=== PATIENT | male | born 1970 | race Caucasian/White ===

== ENCOUNTER 2022-01-03 01:07 | Emergency (ER) | payer MEDICARE, OTHER, SELFPAY ==
[2022-01-03 00:06] VITALS: BP 141/77; PULSE 67; RESP 16; TEMP 36.6; O2SAT 99; BMI 35.5
[2022-01-03 00:08] VITALS: BMI 35.5
--- NOTE | 2022-01-03 00:10 | CT_ITS ---
PROCEDURE INFORMATION: Exam: CT Abdomen And Pelvis With Contrast Exam date and time: 01/03/2022 12:35 AM Age: 51 years old Clinical indication: Abdominal pain; Generalized; Prior surgery; Surgery date: 6+ months; Surgery type: Gb; Additional info: Abd pain TECHNIQUE: Imaging protocol: Computed tomography of the abdomen and pelvis with contrast. Radiation optimization: All CT scans at this facility use at least one of these dose optimization techniques: automated exposure control; mA and/or kV adjustment per patient size (includes targeted exams where dose is matched to clinical indication); or iterative reconstruction. Contrast material: ISOVUE; Contrast volume: 75 ml; Contrast route: IV; COMPARISON: No relevant prior studies available. FINDINGS: Lungs: Mild bibasilar atelectasis. Patchy nodular opacities within the visualized lingula and left lower lobe, possibly areas of pneumonitis. Liver: Hepatic steatosis. Gallbladder and bile ducts: Gallbladder surgically absent. Pancreas: Normal. Spleen: Normal. Adrenal glands: Normal. No mass. Kidneys and ureters: Simple right renal cyst, for which no further evaluation is necessary. Stomach and bowel: Normal. Appendix: Appendix normal. Intraperitoneal space: Unremarkable. No free air. No significant fluid collection. Vasculature: Unremarkable. No abdominal aortic aneurysm. Lymph nodes: Unremarkable. No enlarged lymph nodes. Urinary bladder: Urinary bladder decompressed by Edwards catheter. Reproductive: Unremarkable as visualized. Bones/joints: Mild degenerative changes of the hips and sacroiliac joints. Multilevel thoracolumbar spine degenerative disc space narrowing and osteophyte formation. Soft tissues: Normal. IMPRESSION: 1. No acute abdominal or pelvic abnormality. 2. Patchy nodular opacities within the visualized lingula and left lower lobe, possibly areas of pneumonitis. COMMENTS: Consistent with the [employer]'s Incidental Findings Committee white paper (J Am Tyler Radiol 2018): Any incidental renal lesion less than 1 cm or classified as too small to characterize, or any incidental cystic renal lesion characterized as simple-appearing, is likely benign. No follow-up imaging is recommended for these lesions per consensus recommendations based on imaging criteria.
[2022-01-03 00:24] LABS: Microscopic, Urine URINE MICROSCOPIC (MICROSCOPIC)
[2022-01-03 00:29] LABS: Appearance,Urine CLEAR (Clear); Blood, Urine Negative (Negative); Color,Urine YELLOW (Yellow); Glucose,Urine (UA) Negative (Negative); Ketones,Urine Negative (Negative); Leukocyte Esterase,Urine Negative (Negative); Nitrate,Urine Negative (Negative); Protein,Urine TRACE (Negative); Specific Gravity, Urine >= 1.030 (1.005-1.030)
[2022-01-03 00:29] LABS: Basophils # 0.2 K/mm3 (0-0.2); Basophils % 1.5 % (0.1-2.0); Chloride 100 mmol/L (98-107); Eosinophils # 0.2 K/mm3 (0.0-0.4); Eosinophils % 1.2 % (0.1-12.0); Hemoglobin 14.7 g/dL (14.1-18.0); Lymphocytes # 4.6 K/mm3 (0.7-4.5); Lymphocytes % 33.1 % (10-50); Mean Corpuscular HGB Conc 32.6 g/dL (31.8-35.4); Mean Platelet Volume 9.6 fl (7.4-10.4); Monocytes # 0.9 K/mm3 (0.1-1.0); Monocytes % 6.7 % (1.7-9.3); Neutrophils # 8.1 K/mm3 (1.8-7.8); Neutrophils % 57.5 % (37.0-80.0); Platelet Count 203 K/mm3 (142-424); Potassium 3.9 mmoL/L (3.5-5.1); Red Blood Count 4.74 M/mm3 (4.60-6.20); Red Cell Distribution Width 14.4 % (11.5-17.5); Sodium 135 mmol/L (136-145)
[2022-01-03 00:32] LABS: Amylase 93 U/L (30-110); Blood Urea Nitrogen 8 mg/dl (9-20); Creatinine Clearance Estimated 140 mL/min (50-200); Estimated Glomerular Filt Rate 90 ml/min (>60); GFR (African American) 109 ML/MIN (>60)
[2022-01-03 00:33] LABS: Anion Gap 11.9 mEq/L (5-15); Carbon Dioxide 27 mmol/L (22.0-30.0); Glucose 116 mg/dl (74-100)
[2022-01-03 00:34] LABS: Bilirubin,Urine Negative (Negative); Squamous Epithelial Cell,Urine Occasional #/hpf (0-5); WBC,Urine Occasional #/hpf (0-3)
[2022-01-03 00:38] LABS: C-Reactive Protein 62.7 mg/L (0-4)
--- NOTE | 2022-01-03 00:38 | HMH.EDNVD ---
ED Disposition Clinical Impression: Abdominal pain Qualifiers: Abdominal location: generalized Qualified Code(s): R10.84 - Generalized abdominal pain Disposition: Home, Self-Care Condition on Discharge: Good Instructions: DI for Acute Abdominal Pain Additional Instructions: see pcp for follow up Referrals: Rafy Waller [Primary Care Provider] - - Critical Care Critical Care Time: No Attestation: On , the high probability of a clinically significant, sudden or life threatening deterioration of the following system(s) required my full and direct attention, intervention and personal management. The time I documented below is in addition to time spent performing reported procedures but includes the following listed in this critical care notation. Medical Decision Making - Medical Records Medical records reviewed: Yes: I reviewed the patient's medical records. - Malachi Inquiry Pt receiving controlled substance: No Vital Signs: 01/03/22 00:06 01/03/22 01:00 01/03/22 01:31 Temperature 97.9 F Temperature Source Oral Pulse Rate 71 76 Pulse Rate [Right] 67 Respiratory Rate 16 Blood Pressure 149/81 H 161/83 H Blood Pressure [Right Arm] 141/77 H Blood Pressure Mean 94 109 Blood Pressure Mean [Right Arm] 98 02 Sat by Pulse Oximetry 99 98 100 - Lab Data Lab results reviewed: Yes: I reviewed the patient's lab results. Lab Results 01/03/22 00:15: Sodium 135 L, Potassium 3.9, Chloride 100, Carbon Dioxide 27, Anion Gap 11.9, BUN 8 L, Creatinine 0.90, Estimated Creat Clear 140, Estimated GFR 90, Est GFR ( Amer) 109, Glucose 116 H, Calcium 9.0, C-Reactive Protein 62.7 H, Amylase 93 01/03/22 00:15: WBC 14.0 H, RBC 4.74, Hgb 14.7, Hct 45.0, MCV 95.0 H, MCH 31.0, MCHC 32.6, RDW 14.4, Plt Count 203, MPV 9.6, Neut % (Auto) 57.5, Lymph % (Auto) 33.1, Stark % (Auto) 6.7, Eos % (Auto) 1.2, Baso % (Auto) 1.5, Neut # (Auto) 8.1 H, Lymph # (Auto) 4.6 H, Stark # (Auto) 0.9, Eos # (Auto) 0.2, Baso # (Auto) 0.2, ESR 10 01/03/22 00:15: Magnesium 1.6, Lipase 261, Procalcitonin 0.070 01/03/22 00:15: Lactate 2.0 01/03/22 00:15: Total Bilirubin 0.5, Direct Bilirubin 0.2, Conjugated Bilirubin 0.0, Indirect Bilirubin 0.3, Unconjugated Bilirubin 0.3, AST 52, ALT 59, Alkaline Phosphatase 117, Total Protein 7.7, Albumin 4.4 01/03/22 00:20: Urine Color Yellow, Urine Appearance Clear, Urine pH 6.0, Ur Specific [place] >= 1.030, Urine Protein Trace, Urine Glucose (UA) Negative, Urine Ketones Negative, Urine Blood Negative, Urine Nitrate Negative, Urine Bilirubin Negative, Urine Urobilinogen 1.0, Ur Leukocyte Esterase Negative, Urine WBC Occasional, Ur Squamous Epith Cells Occasional 01/03/22 01:52: SARS-CoV-2 (PCR) Not detected, Influenza A Untype (PCR) Not detected, Influenza Type B (PCR) Not detected Result diagrams: 01/03/22 00:15 01/03/22 00:15 Orders (Tests/Meds): ED MEDICATIONS Generic Name Dose Route Start Last Admin Trade Name Freq PRN Reason Stop Dose Admin Sodium Chloride 1,000 mls @ 999 mls/hr 01/03/22 00:15 01/03/22 00:42 Sod Chlor 0.9% 1000ml Bag IV 01/03/22 01:15 999 mls/hr .Q1H1M JORGITO Administration Sodium Chloride 8 ml 01/03/22 00:16 Sodium Chloride 0.9% 10ml Vial IV 02/02/22 00:15 NEEDED PRN dilute pepcid Discontinued Medications Generic Name Dose Route Start Last Admin Trade Name Freq PRN Reason Stop Dose Admin Famotidine 20 mg 01/03/22 00:16 01/03/22 00:43 Famotidine 20mg/2ml Vial IV 01/03/22 00:17 20 mg ONCE ONE Administration Iopamidol 75 ml 01/03/22 00:49 01/03/22 00:50 Iopamidol-370 (76%);100ml Bottle IV 01/03/22 00:50 75 ml ONCE ONE Administration Ketorolac Tromethamine 30 mg 01/03/22 00:16 01/03/22 00:43 Ketorolac 30mg/Ml Vial IV 01/03/22 00:17 30 mg ONCE ONE Administration Metoclopramide HCl 10 mg 01/03/22 00:15 01/03/22 00:42 Metoclopramide Hcl 10mg/2ml Vial IVP 01/03/22 00:16 10 mg ONCE ONE Administration
[2022-01-03 00:43] LABS: Lipase 261 U/L (23-300); Magnesium 1.6 mg/dl (1.6-2.3)
[2022-01-03 01:00] VITALS: BP 149/81; PULSE 71; O2SAT 98
[2022-01-03 01:25] LABS: Erythrocyte Sedimentation Rate 10 mm/hr (0-15)
[2022-01-03 01:31] VITALS: BP 161/83; PULSE 76; O2SAT 100
--- NOTE | 2022-01-03 01:49 | XR_ITS ---
PROCEDURE INFORMATION: Exam: XR Chest Exam date and time: 01/03/2022 1:53 AM Age: 51 years old Clinical indication: Other: Elevated wbc TECHNIQUE: Imaging protocol: Radiologic exam of the chest. Views: 1 view. COMPARISON: CT ABDOMEN PELVIS W CON 01/03/2022 12:35 AM FINDINGS: Lungs: Minimal left basilar opacity, likely atelectasis and/or minimal pneumonitis. No focal consolidation. Pleural spaces: Unremarkable. No pleural effusion. No pneumothorax. Heart/Mediastinum: Normal. Bones/joints: Changes of prior right proximal humeral fracture repair. IMPRESSION: Minimal left basilar opacity, likely atelectasis and/or minimal pneumonitis. No focal consolidation.
[2022-01-03 01:59] LABS: Coronavirus 19, PCR Not Detected (NotDetected); Influenza A, PCR Not Detected (NotDetected); Influenza B, PCR Not Detected (NotDetected)
[2022-01-03 02:41] LABS: Alanine Aminotransferase 59 U/L (12-78); Albumin Level 4.4 g/dl (3.5-5.0); Alkaline Phosphatase 117 U/L (38-126); Aspartate Amino Transferase 52 U/L (17-59); Bilirubin,Direct 0.2 mg/dl (0.0-0.4); Bilirubin,Indirect 0.3 mg/dL (0.0-0.9); Bilirubin,Total 0.5 mg/dl (0.2-1.3); Bilirubin,Unconjugated 0.3 mg/dL (0.0-1.1); Total Protein,Serum 7.7 g/dl (6.3-8.2)
[2022-01-03 03:19] VITALS: BP 145/78; PULSE 70; RESP 16; TEMP 36.6; O2SAT 100
== END 2022-01-03 04:10 | disposition home or self-care (01) ==
PROVIDERS: Emergency Provider Emergency Medicine; PCP Pediatrics
DX: R10.84 Generalized abdominal pain (principal)
CPT/HCPCS: 71045; 74177; 80048; 80076; 81001; 82150; 83605; 83690; 83735; 84145; 85025; 85651; 86140; 87040; 96365; 96375; 99284; C9803; J2405; Q9967; U0003; U0005

== ENCOUNTER 2022-11-16 02:21 | Emergency (ER) | payer MEDICARE, OTHER, SELFPAY ==
[2022-11-16 02:17] VITALS: BP 159/91; PULSE 102; RESP 16; TEMP 36.7; O2SAT 98
--- NOTE | 2022-11-16 02:27 | ECG_ITS ---
APPROVED REPORT Exam: Resting ECG HR:88 bpm ECG Measurements Heart Rate 88 AXES MD 166 P 67 QRSd 88 QRS 44 QT 403 T 49 QTc 449 Conclusion SINUS RHYTHM NORMAL ECG UNCONFIRMED REPORT Electronically signed by : Lenny Hogan MD 11/16/2022 21:15:52
--- NOTE | 2022-11-16 02:27 | CT_ITS ---
PROCEDURE INFORMATION: Exam: CT Abdomen And Pelvis With Contrast Exam date and time: 11/16/2022 3:28 AM Age: 52 years old Clinical indication: Abdominal pain; Additional info: Mid epigastric pain, nausea/vomiting TECHNIQUE: Imaging protocol: Computed tomography of the abdomen and pelvis with contrast. Radiation optimization: All CT scans at this facility use at least one of these dose optimization techniques: automated exposure control; mA and/or kV adjustment per patient size (includes targeted exams where dose is matched to clinical indication); or iterative reconstruction. Contrast material: ISOVUE; Contrast volume: 75 ml; Contrast route: IV; REPORTING DATA: Count of CT and Cardiac NM exams in prior 12 months: This patient has received [address] and 0 known cardiac nuclear medicine studies in the 12 months prior to the current study. COMPARISON: CT ABDOMEN PELVIS W CON 01/03/2022 12:35 AM FINDINGS: Liver: The liver is low in density. Gallbladder and bile ducts: Prior cholecystectomy. Pancreas: Normal. No ductal dilation. Spleen: Normal. No splenomegaly. Adrenal glands: Normal. No mass. Kidneys and ureters: Normal. No hydronephrosis. Stomach and bowel: Unremarkable. No obstruction. No mucosal thickening. Appendix: No evidence of appendicitis. Intraperitoneal space: Unremarkable. No free air. No significant fluid collection. Vasculature: Unremarkable. No abdominal aortic aneurysm. Lymph nodes: Unremarkable. No enlarged lymph nodes. Urinary bladder: Unremarkable as visualized. Reproductive: Unremarkable as visualized. Bones/joints: Unremarkable. No acute fracture. Soft tissues: Unremarkable. IMPRESSION: 1. No acute process or mass noted. 2. Diffuse hepatic steatosis. 3. Prior cholecystectomy.
--- NOTE | 2022-11-16 02:27 | XR_ITS ---
PROCEDURE INFORMATION: Exam: XR Chest Exam date and time: 11/16/2022 3:14 AM Age: 52 years old Clinical indication: Other: Midepigastric pain TECHNIQUE: Imaging protocol: Radiologic exam of the chest. Views: 2 views. COMPARISON: CR XR CHEST PORTABLE 01/03/2022 1:53 AM FINDINGS: Lungs: Unremarkable. No consolidation. Pleural spaces: Unremarkable. No pleural effusion. No pneumothorax. Heart/Mediastinum: Unremarkable. No cardiomegaly. Bones/joints: Unremarkable. IMPRESSION: No acute findings.
--- NOTE | 2022-11-16 02:42 | HMH.EDABDPAI ---
Discharge Plan Disposition Patient Disposition: Home, Self-Care Condition: Good Prescriptions Prescriptions: No Action fluoxetine 40 MG capsule 40 mg PO DAILY atorvastatin 10 MG tablet 10 mg PO HS tamsulosin 0.4 MG capsule 0.4 mg PO DAILY pantoprazole 40 MG tablet,delayed release (DR/EC) 40 mg PO DAILY trazodone 150 MG tablet 150 mg PO DAILY metoprolol tartrate 50 MG tablet 50 mg PO DAILY mirtazapine 45 MG tablet 45 mg PO DAILY finasteride 5 MG tablet 5 mg PO DAILY buspirone 15 MG tablet 15 mg PO BID Referrals Follow up/Referrals: Provider,Referral, MD [Primary Care Provider] - See instructions Clinical Impressions Clinical Impression: Abdominal pain, Alcohol use disorder, Depression, Self-harm Instructions Patient Instructions: Acute Abdominal Pain, DI for Suicidal Ideation-Adult Print Language Print Language: Surinamese Discharge ED Provider: Arden Arambula Abdominal Pain HPI <Daljit Tellez (ED)MD - Last Filed: 11/16/22 08:03> General Chief Complaint: Abdominal Pain Stated Complaint: abdominal pain Time Seen by Provider: 11/16/22 02:42 Mode of Arrival: EMS Source of Information: Patient, EMS and Medical Record Limitations: No Limitations Description of Symptoms (Recalled from ER Triage Doc. by RN): 52 yo male presents with cc of abd pain. According to patient, he ingested 5 beers earlier this date, but that his belly was hurting prior to it, and it caused some gastric distress afterwards. vomited once while at home. Patient is alert, oriented, speech impediment present that makes it difficult to understand his words. chews tobacco daily. denies bloody vomit. denies bloody stool. History of Present Illness HPI narrative: pt with reported etoh use and upper abd pain - MD complaint: abdominal pain Onset (ago): hour(s) Consistency: intermittent Location: epigastric Severity: moderate Associated symptoms: denies other symptoms Related Data Home Medications Medication Instructions Recorded Confirmed atorvastatin 10 mg tablet 10 mg PO HS hld 01/03/22 01/03/22 buspirone 15 mg tablet 15 mg PO BID Depression 01/03/22 01/03/22 finasteride 5 mg tablet 5 mg PO DAILY urinary retention 01/03/22 01/03/22 fluoxetine 40 mg capsule 40 mg PO DAILY Depression 01/03/22 01/03/22 metoprolol tartrate 50 mg tablet 50 mg PO DAILY htn 01/03/22 01/03/22 mirtazapine 45 mg tablet 45 mg PO DAILY Depression 01/03/22 01/03/22 pantoprazole 40 mg tablet,delayed 40 mg PO DAILY GERD 01/03/22 01/03/22 release tamsulosin 0.4 mg capsule 0.4 mg PO DAILY urinary retention 01/03/22 01/03/22 trazodone 150 mg tablet 150 mg PO DAILY Depression 01/03/22 01/03/22 Allergies Allergy/AdvReac Type Severity Reaction Status Date / Time No Known Allergies Allergy Verified 01/03/22 00:08 PFSH <Daljit OTOOLE)MD - Last Filed: 11/16/22 08:03> PFS Disclaimer: The information contained in this section may have been updated after the patient was seen, as this information can be updated by other users. Social History (Updated 11/16/22 @ 08:03 by Daljit OTOOLE)MD) Smoking Status: Never smoker alcohol intake: current current occupational status: unemployed Travel in the last 8 weeks: None <Daljit OTOOLE)MD - Last Filed: 11/16/22 08:03> ROS Obtained: Yes All systems reviewed & no additional complaints except as documented Physical Exam <Daljit OTOOLE)MD - Last Filed: 11/16/22 08:03> General General appearance: alert Head Head exam: normocephalic Eye Eye exam: Present PERRL and EOMI; Absent scleral icterus ENT ENT exam: Present mucous membranes moist and other (has chewing tob in mouth ) Neck Neck exam: Present trachea midline Respiratory Respiratory exam: Absent respiratory distress Cardiovascular Cardiovascular exam: Present regular rate Abdominal Exam Abdominal exam: Present soft and tenderness; Absent guarding Abdominal
[2022-11-16 02:43] LABS: Basophils % 0.4 % (0.1-2.0); Eosinophils # 0.1 K/mm3 (0.0-0.4); Eosinophils % 1.4 % (0.1-12.0); Hematocrit 43.9 % (42.0-52.0); Hemoglobin 14.9 g/dL (14.1-18.0); Lymphocytes # 2.8 K/mm3 (0.7-4.5); Lymphocytes % 28.5 % (10-50); Mean Corpuscular HGB Conc 33.8 g/dL (31.8-35.4); Mean Corpuscular Hemoglobin 31.9 pg (27.0-31.2); Mean Corpuscular Volume 94.4 fl (80-94); Mean Platelet Volume 9.3 fl (7.4-10.4); Monocytes # 0.6 K/mm3 (0.1-1.0); Monocytes % 6.2 % (1.7-9.3); Neutrophils # 6.2 K/mm3 (1.8-7.8); Neutrophils % 63.6 % (37.0-80.0); Platelet Count 163 K/mm3 (142-424); Red Blood Count 4.65 M/mm3 (4.60-6.20); Red Cell Distribution Width 13.9 % (11.5-17.5); White Blood Count 9.7 K/mm3 (4.8-10.8)
[2022-11-16 02:45] LABS: Chloride 97 mmol/L (98-107); Potassium 3.7 mmoL/L (3.5-5.1); Sodium 140 mmol/L (136-145)
[2022-11-16 02:48] LABS: Alanine Aminotransferase 137 U/L (12-78); Albumin Level 4.8 g/dl (3.5-5.0); Albumin/Globulin Ratio 1.4 (1.1-1.8); Alkaline Phosphatase 136 U/L (38-126); Amylase 89 U/L (30-110); Anion Gap 20.7 mEq/L (5-15); Aspartate Amino Transferase 106 U/L (17-59); Bilirubin,Total 0.3 mg/dl (0.2-1.3); Blood Urea Nitrogen 7 mg/dl (9-20); Carbon Dioxide 26 mmol/L (22.0-30.0); Creatinine Clearance Estimated 124 mL/min (50-200); Estimated Glomerular Filt Rate 102 ml/min (>60); GFR (African American) 124 ML/MIN (>60); Globulin 3.5 g/dL (1.3-3.2); Glucose 195 mg/dl (74-100); Lipase 368 U/L (23-300); Total Protein,Serum 8.3 g/dl (6.3-8.2)
[2022-11-16 02:50] LABS: Ethyl Alcohol 61 mg/dl (0-10)
[2022-11-16 03:00] VITALS: BP 131/69; PULSE 97; O2SAT 97
[2022-11-16 03:01] LABS: Troponin I < 0.01 ng/ml (0.00-0.034)
--- NOTE | 2022-11-16 03:22 | PC.NURSE ---
pt belongings removed, bagged. placed outside of room. patient is currently claiming he wants to by hanging. notified. house notified.
[2022-11-16 03:47] LABS: Acetaminophen < 10 ug/ml (10-30); Salicylate < 1.0 mg/dL (2.0-20.0)
--- NOTE | 2022-11-16 03:52 | PC.NURSE ---
pt remains 1-on1 obs. srna placed at bedside per data warehouse specialist
[2022-11-16 06:57] LABS: Troponin I < 0.01 ng/ml (0.00-0.034)
--- NOTE | 2022-11-16 07:05 | PC.NURSE ---
contacted judge solis r/t paper work needed for [employer] [facility] process. Reports he had sent it. We have not received email, gave him additional email to send paperwork to, reports he will send it.
--- NOTE | 2022-11-16 07:10 | PC.NURSE ---
per bending machine set up operator report pt reported to them that pt wanted to hang himself. pt currently 1:1 observation with staff member at [facility]
--- NOTE | 2022-11-16 08:06 | PC.NURSE ---
contacted judge solis r/t not receiving paper work
--- NOTE | 2022-11-16 09:25 | PC.NURSE ---
waiting combination building inspector back from judge solis with fax number for [facility]
--- NOTE | 2022-11-16 09:31 | PC.NURSE ---
notarized paperwork faxed to judge solis at [facility] at this time
--- NOTE | 2022-11-16 09:45 | PC.NURSE ---
paperwork received back from judge solis, faxing it to [facility] now.
[2022-11-16 09:56] VITALS: BP 178/68; PULSE 94; O2SAT 99
--- NOTE | 2022-11-16 09:56 | PC.NURSE ---
Addendum entered by Janice Vu RN 11/16/22 09:58: waiting integration software engineer back Original Note: contacted [facility] helpline spoke with sneha reports that she has received the paperwork that I faxed over states they are giving it to staff for evaluation.
--- NOTE | 2022-11-16 10:25 | PC.NURSE ---
spoke with brenden at [facility] states she is finishing another consult and then would contact us back to start on this pts consult. Requested to know if someone was present (family) to give collateral. Gave her Sharla at [facility] phone number to speak with. Reports she will probably call Sharla first and then call us back to set up a zoom.
--- NOTE | 2022-11-16 11:39 | PC.NURSE ---
spoke with pt ILEANA Hoover, was calling to check on pt. Call back number [phone]
--- NOTE | 2022-11-16 11:44 | PC.NURSE ---
contacting [facility] to check on status of evaluation
--- NOTE | 2022-11-16 11:46 | PC.NURSE ---
spoke with Dayana at [facility] states she is finishing up previous evaluation and then will be getting started on this pts evaluation. No time line available
--- NOTE | 2022-11-16 12:39 | PC.NURSE ---
lunch tray ordered for pt.
--- NOTE | 2022-11-16 12:50 | PC.NURSE ---
pt on zoom call at this time with brenden from [employer].
--- NOTE | 2022-11-16 12:51 | PC.NURSE ---
pt denying SI or HI at this time, reports he has tried to harm himself 2 previous times but denies wanting to self harm at this time. Pt at a moderate suicide risk level per protocol. Dr. Arambula at and spoke with pt at this time also.
--- NOTE | 2022-11-16 13:16 | PC.NURSE ---
pt finished zoom assessment, made safety contract with brenden from [facility] [employer]. Pt a moderate suicide risk per protocol, pt moved to room 5 (safe room) in view of nurses station. Pt remains in paper gown. All cords removed from room. Pt sitting on side of bed watching tv finishing his lunch. pt alert, oriented x3. door remains open to pts room.
--- NOTE | 2022-11-16 14:28 | PC.NURSE ---
Received fax of safety plan from [email or web address] (Yadira Hansen), states pt is ok to be d/c home from her standpoint.
--- NOTE | 2022-11-16 14:38 | PC.NURSE ---
spoke with Sharla at [facility]. States she has also spoken with Yadira muro with [facility], she is aware of details of safety plan. notified her pt is ready for d/c. States she will be sending staff to get pt, should be here with an hr.
[2022-11-16 15:17] VITALS: BP 132/59; PULSE 80; RESP 17; TEMP 36.7; O2SAT 97
== END 2022-11-16 15:20 | disposition home or self-care (01) ==
PROVIDERS: Emergency Medicine; Emergency Provider Emergency Medicine
DX: R10.13 Epigastric pain (principal); R45.851 Suicidal ideations; F10.90 Alcohol use, unspecified, uncomplicated; F17.220 Nicotine dependence, chewing tobacco, uncomplicated
CPT/HCPCS: 71046; 74177; 80053; 80329; 82150; 83690; 84484; 85025; 93005; 96361; 96374; 96375; 99285; J2405; Q9967

== ENCOUNTER 2023-03-17 02:37 | Emergency (ER) | payer MEDICARE, OTHER, SELFPAY ==
[2023-03-17 02:37] VITALS: BP 147/70; PULSE 79; RESP 20; TEMP 36.8; O2SAT 99; BMI 29.0
--- NOTE | 2023-03-17 02:41 | XR_ITS ---
PROCEDURE INFORMATION: Exam: XR Right Tibia and Fibula Exam date and time: 03/17/2023 2:45 AM Age: 52 years old Clinical indication: Injury or trauma; Fall; Blunt trauma; Lower leg; Right; Additional info: Fall, right tib/fib pain medially TECHNIQUE: Imaging protocol: Radiologic exam of the right tibia and fibula. Views: 2 views. COMPARISON: No relevant prior studies available. FINDINGS: Bones/joints: Normal. Soft tissues: Normal. IMPRESSION: No acute findings.
--- NOTE | 2023-03-17 02:41 | XR_ITS ---
PROCEDURE INFORMATION: Exam: XR Right Shoulder Exam date and time: 03/17/2023 2:42 AM Age: 52 years old Clinical indication: Injury or trauma; Fall; Blunt trauma (contusions or hematomas); Prior surgery; Surgery date: 6+ months; Surgery type: Right shoulder; Additional info: Fall, anterior R shoulder pain TECHNIQUE: Imaging protocol: Radiologic exam of the right shoulder. Views: 2 or more views. COMPARISON: CR XR CHEST 2V 11/16/2022 3:14 AM FINDINGS: Bones/joints: Prior ORIF humeral head or neck fracture with a plate and multiple screws. Good anatomic alignment. No acute process noted. Soft tissues: Normal. IMPRESSION: Prior ORIF humeral head or neck fracture with a plate and multiple screws. Good anatomic alignment. No acute process noted.
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
--- NOTE | 2023-03-17 05:09 | PC.NURSE ---
Pt does not have a ride home, will contact [facility] after 7am
--- NOTE | 2023-03-17 06:25 | PC.NURSE ---
pt resting no needs at this time
--- NOTE | 2023-03-17 07:02 | PC.NURSE ---
received report from previous shift. Pt resting in room, no needs at this time.
--- NOTE | 2023-03-17 07:20 | PC.NURSE ---
Called Case Management to see about arrangements for pt to get home. Nery is contacting [facility] bus. Pt updated on this and given a blanket for comfort. I offered to get a breakfast tray for pt, however he refused.
--- NOTE | 2023-03-17 07:27 | PC.NURSE ---
Nery from [employer] states [facility] will not open until 0800 today, she will call for milk pickup driver arrangements at that time.
[2023-03-17 07:35] VITALS: BP 140/70; PULSE 70; RESP 18; TEMP 36.7; O2SAT 98
--- NOTE | 2023-03-17 08:47 | PC.NURSE ---
[facility] will be here for pt at noon per Sharon in [facility]
--- NOTE | 2023-03-17 08:58 | PC.NURSE ---
Pt advised that his contact, Sharath, is at work, but it was okay to call his brother. Upon attempting to call pts brother received no answer.
== END 2023-03-17 10:05 | disposition home or self-care (01) ==
PROVIDERS: Emergency Provider Emergency Medicine
DX: M25.512 Pain in left shoulder (principal); M79.604 Pain in right leg; I10 Essential (primary) hypertension; E78.5 Hyperlipidemia, unspecified; F32.A Depression, unspecified; F41.9 Anxiety disorder, unspecified; W19.XXXA Unspecified fall, initial encounter
CPT/HCPCS: 73030; 73590; 96372; 99284

== ENCOUNTER 2025-01-26 14:46 | Emergency (ER) | payer MEDICARE, OTHER, SELFPAY ==
--- OUTSIDE RECORDS SUMMARY | 2025-01-06 09:00 | XMS_ITS ---
Author Organization [facility] Address [facility] [address] Care Team Providers Care Mine Promotor Name Role Phone NatalyRebeca petty Unavailable [phone] Allergies Allergen (clinical drug ingredient) Drug/Non Drug Allergy documented on EMR Reaction Allergy Type Onset Date Status morphine Morphine Unknown Drug Allergy Active ciprofloxacin Ciprofloxacin Unknown Drug Allergy Active REASON FOR VISIT Arm is better Medications Medication SIG (Take, Route, Frequency, Duration) Notes Start Date End Date Status Mirtazapine 15 MG 1 tablet at bedtime Orally Once a day Active busPIRone HCl 15 MG 1 tablet Orally Twice a day Active Divalproex Sodium 250 MG 1 tablet Orally Twice a day for 30 days Active traZODone HCl 150 MG 1 tablet at bedtime Orally Once a day Active FLUoxetine HCl 40 MG 1 capsule Orally Once a day Active Encounters Encounter Location Date Provider Diagnosis [facility] [address] [place] [address] 01/06/2025 Rebeca Ingram Major depressive disorder, recurrent, moderate F33.1 ; Generalized anxiety disorder F41.1 ; Intellectual disability F79 ; Impulse disorder, unspecified F63.9 and Alcohol use disorder F10.90 Assessments Encounter Date Diagnosis (ICD Code) Assessment Notes Treatment Notes Treatment Clinical Notes Section Notes 01/06/2025 Major depressive disorder, recurrent, moderate (ICD-10 - F33.1) Remeron decreased to 15mg QHS 07/22/2024 to aide with sleep. 01/06/2025 Generalized anxiety disorder (ICD-10 - F41.1) 01/06/2025 Intellectual disability (ICD-10 - F79) No pharmocological intervention needed at this time. 01/06/2025 Impulse disorder, unspecified (ICD-10 - F63.9) Depakote prescribed 06/10/2024 to treat increased impulsivity, aggression, and agitation in recent weeks. 01/06/2025 Alcohol use disorder (ICD-10 - F10.90) Recommend continued abstinence. 01/06/2025 Other 1) No changes to psychotropic medication regimen. Continue current regimen as patient's symptoms are improved at the lowest effective dose and patient has achieved maximal functioning and able to be cared for appropriately. 2) Continue to provide psychiatric support and medication management. Please call with signs of distress or mood changes that arise. Total time spent assessing patient, reviewing chart, and coordinating care: 27 minutes Plan Of Treatment Medication Medication Name Sig Start Date Stop Date Notes Mirtazapine 15 MG 1 tablet at bedtime Orally Once a day busPIRone HCl 15 MG 1 tablet Orally Twice a day Divalproex Sodium 250 MG 1 tablet Orally Twice a day for 30 days traZODone HCl 150 MG 1 tablet at bedtime Orally Once a day FLUoxetine HCl 40 MG 1 capsule Orally Once a day Treatment Notes Assessment Notes Major depressive disorder, r ecurrent, moderate Remeron decreased to 15mg QHS 07/22/2024 to aide with sleep. Intellectual disability No pharmocologic al intervention needed at this time. Impulse disorder, unspecified Depakote p rescribed 06/10/2024 to treat increased impulsivity, aggression, and agitation in recent weeks. Alcohol use disorder Recommend continued abstinence. Other 1) No changes to psychotropic medication regimen. Continue current regimen as patient's symptoms are improved at the lowest effective dose and patient has achieved maximal functioning and able to be cared for appropriately. 2) Continue to provide psychiatric support and medication management. Please call with signs of distress or mood changes that arise. Total time spent assessing patient, reviewing chart, and coordinating care: 27 minutes Next Appt Details Follow Up: 2-4 weeks and as needed, Reason: Progress Notes * Sam GODFREYDOB:1970 (54 yo M)Acc No.[id number]:01/06/2025 Progress Notes Patient: Sam YING Provider: Michelle Ingram APRN :1970 A ge:54 Y S ex:Male Date:01/06/2025 Address:[address] [place] [id number] Subjective: * Chief Complaints: * Arm is better * HPI: P sychiatric Status: Sam Godfrey is a 54-year-old single, male resident at [facility] in [place], [place]. Patient is being seen for follow-up visit today to monitor mood and psychosis symptoms and to provide psychotropic medication management. Patient is being treated for intellectual disability, anxiety disorder, major depressive disorder, and TBI induced mood disorder. Patient has allergies to ciprofloxacin and morphine. Staff reported patient's recent x-ray indicated no fracture to his right arm after falling in the backyard. Patient is no longer required to wear arm brace. Patient was seen in milieu for visit today. Patient stated, Arm is better. Patient was noted to not be wearing arm brace or using walker today. Sondra gonzalez was noted to be sitting calmly in the milieu and engaging with peers with no signs of pain or SOB. Patient exhibits very poor judgment and insight. Patient exhibited poor recent and remote memory. Patient appeared calm and was cooperative throughout visit. Patient presented with blunted affect. Patient appropriately dressed and groomed. Patient exhibited fair eye contact. Patient responded to questions asked with dysarthria and his responses were often difficult to understand, however, this is his baseline. Patient did not appear to be experiencing psychosis symptoms and was in no distress. Patient denied negative side effects of psychotropic medications. Clinician provided evaluation, completed chart review, and consulted with nursing staff. Risks, benefits, and side effects of all psychotropic medications were monitored and reconsidered. * ROS: R OS completed and negative to chief complaint unless otherwise noted in HPI. * Medical History: * Surgical History: A vailable for review in patient's record at facility * Hospitalization/Major Diagno stic Procedure: L ast psychiatric admission was in July 2023 at [facility] Patient has many past psychiatric hospitalizations * Family History: F ather: . M other: . B rother(s): alive. S ister(s): alive. S on(s): alive. * Social History: Sondra gonzalez has large family with many siblings. Patient's brother is his POA. Has h/o alcohol abuse with multiple falls and injuries from falls while intoxicated IDD with speech impediment Has made multiple false alligations in the past. * Medications: T akingMirtazapine 15 MG Tablet 1 tablet at bedtime Orally Once a day traZODone HCl 150 MG Tablet 1 tablet at bedtime Orally Once a day FLUoxetine HCl 40 MG Capsule 1 capsule Orally Once a day busPIRone HCl 15 MG Tablet 1 tablet Orally Twice a day Divalproex Sodium 250 MG Tablet Delayed Release 1 tablet Orally Twice a day Medication List reviewed and reconciled with the patientTaking Mirtazapine 15 MG Tablet 1 tablet at bedtime Orally Once a day Taking traZODone HCl 150 MG Tablet 1 tablet at bedtime Orally Once a day Taking FLUoxetine HCl 40 MG Capsule 1 capsule Orally Once a day Taking busPIRone HCl 15 MG Tablet 1 tablet Orally Twice a day Taking Divalproex Sodium 250 MG Tablet Delayed Release 1 tablet Orally Twice a day Medication List reviewed and reconciled with the patient * Allergies: C iprofloxacinMorphine Objective: * Vitals: Assessment: * Assessment: 1. M ajor depressive disorder, recurrent, moderate - F33.1 (Primary) 2 . G eneralized anxiety disorder - F41.1 3 . I ntellectual disability - F79 ? 4 . I mpulse disorder, unspecified - F63.9 5 . A lcohol use disorder - F10.90 Plan: * Treatment: 2. G eneralized anxiety disorder Continue FLUoxetine HCl Capsule, 40 MG, 1 capsule, Orally, Once a day; C ontinue busPIRone HCl Tablet, 15 MG, 1 tablet, Orally, Twice a day. 3. I ntellectual disability Notes: No pharmocological intervention needed at this time. 4. I mpulse disorder, unspecified Continue Divalproex Sodium Tablet Delayed Release, 250 MG, 1 tablet, Orally, Twice a day, 30 days, 60. Notes: Depakote prescribed 06/10/2024 to treat increased impulsivity, aggression, and agitation in recent weeks. 5. A lcohol use disorder Notes: Recommend continued abstinence. 6. O thers Notes: 1) No changes to psychotropic medication regimen. Continuecurrent regimen as patient's symptoms are improved at the lowest effective doseand patient has achieved maximal functioning and able to be cared forappropriately. 2) Continue to provide psychiatric support and medication management. Please call with signs of distress or mood changes that arise. Total time spent assessing patient, reviewing chart, and coordinating care: 27 minutes * Procedure Codes: 9 9348 HOME V, EP [id number] PT INELIG FOR DEPRESSION SCR * Follow Up: 2 -4 weeks and as needed * Billing Information: * Visit Code: * Procedure Codes: 21666 HOME V, EP EXPANDED. G8433 PT INELIG FOR DEPRESSION SCR. Care Plan Details* * Sign off status: Completed true * Provider: Michelle Ingram APRN Date: 01/06/2025 Generated for Silvino cardenas/Thierno/eTransmrehan on: 0 01/26/2025 03:18 PM EDT History and Physical Notes * HPI (History of Present Illness) Category Sub-Category Detail Notes Category Not es Psychiatric Status Sam Godfrey is a 54-year-old single, male resident at [facility] in [place], [place]. Patient is being seen for follow-up visit today to monitor mood and psychosis symptoms and to provide psychotropic medication management. Patient is being treated for intellectual disability, anxiety disorder, major depressive disorder, and TBI induced mood disorder. Patient has allergies to ciprofloxacin and morphine. Staff reported patient's recent x-ray indicated no fracture to his right arm after falling in the backyard. Patient is no longer required to wear arm brace. Patient was seen in milieu for visit today. Patient stated, Arm is better. Patient was noted to not be wearing arm brace or using walker today. Patient was noted to be sitting calmly in the milieu and engaging with peers with no signs of pain or SOB. Patient exhibits very poor judgment and insight. Patient exhibited poor recent and remote memory. Patient appeared calm and was cooperative throughout visit. Patient presented with blunted affect. Patient appropriately dressed and groomed. Patient exhibited fair eye contact. Patient responded to questions asked with dysarthria and his responses were often difficult to understand, however, this is his baseline. Patient did not appear to be experiencing psychosis symptoms and was in no distress. Patient denied negative side effects of psychotropic medications. Clinician provided evaluation, completed chart review, and consulted with nursing staff. Risks, benefits, and side effects of all psychotropic medications were monitored and reconsidered.
[2025-01-26] VITALS (28 sets, daily range): BP systolic 147–204; BP diastolic 72–126; PULSE 68–80; RESP 10–16; TEMP 37.1; O2SAT 98–99; BMI 28.0; BMI 28.8
--- NOTE | 2025-01-26 14:45 | PC.NURSE ---
Addendum entered by Lizzie Phillips RN 01/26/25 16:46: M.Luz MCGRAW requested the involuntary hold process be started due to the pt having SI. The pt states he has been having auditory hallucinations stating that he needs to cut his throat and hang... himself. Original Note: Per provider, Provider wanted to start the involuntary hold process.
--- NOTE | 2025-01-26 14:49 | HMH.EDGENADL ---
Discharge Plan Prescriptions Prescriptions: No Action fluoxetine 40 MG capsule 40 mg PO DAILY atorvastatin 10 MG tablet 10 mg PO HS tamsulosin 0.4 MG capsule 0.4 mg PO DAILY pantoprazole 40 MG tablet,delayed release (DR/EC) 40 mg PO DAILY trazodone 150 MG tablet 150 mg PO DAILY metoprolol tartrate 50 MG tablet 50 mg PO DAILY mirtazapine 45 MG tablet 45 mg PO DAILY finasteride 5 MG tablet 5 mg PO DAILY buspirone 15 MG tablet 15 mg PO BID Print Language Print Language: Yoruba Discharge ED Provider: Rubia Montano Adult HPI General Stated complaint: chest pain Time Seen by Provider: 01/26/25 14:49 Related Data Home Medications ?Medication ?Instructions ?Recorded ?Confirmed atorvastatin 10 mg tablet 10 mg PO HS hld 01/03/22 01/03/22 buspirone 15 mg tablet 15 mg PO BID Depression 01/03/22 01/03/22 finasteride 5 mg tablet 5 mg PO DAILY urinary retention 01/03/22 01/03/22 fluoxetine 40 mg capsule 40 mg PO DAILY Depression 01/03/22 01/03/22 metoprolol tartrate 50 mg tablet 50 mg PO DAILY htn 01/03/22 01/03/22 mirtazapine 45 mg tablet 45 mg PO DAILY Depression 01/03/22 01/03/22 pantoprazole 40 mg tablet,delayed 40 mg PO DAILY GERD 01/03/22 01/03/22 release tamsulosin 0.4 mg capsule 0.4 mg PO DAILY urinary retention 01/03/22 01/03/22 trazodone 150 mg tablet 150 mg PO DAILY Depression 01/03/22 01/03/22 Allergies Allergy/AdvReac Type Severity Reaction Status Date / Time No Known Allergies Allergy Verified 01/03/22 00:08 [facility] Disclaimer: The information contained in this section may have been updated after the patient was seen, as this information can be updated by other users. Social History (Updated 11/16/22 @ 08:03 by Daljit Tellez (ED)MD) Smoking Status: Never smoker alcohol intake: current current occupational status: unemployed Travel in the last 8 weeks?: None Other Medical History Have you received the Flu Vaccine for this season: No Have you received the Pneumonia Vaccine: No Medical Decision Making Medical Records Screening: Per USPSTF and CDC recommendations, given the prevalence of disease in our region, it is our hospital?s policy to screen for HIV and viral Hepatitis for all patients aged 18 and over and those with ongoing risk factors.
--- NOTE | 2025-01-26 14:54 | XR_ITS ---
PROCEDURE INFORMATION: Exam: XR Chest Exam date and time: 01/26/2025 3:10 PM Age: 54 years old Clinical indication: Other: Chest pain; Additional info: Cp TECHNIQUE: Imaging protocol: Radiologic exam of the chest. Views: 1 view. COMPARISON: CR XR CHEST 2V 11/16/2022 3:14 AM FINDINGS: Lungs: Unremarkable. No consolidation. Pleural spaces: Unremarkable. No pleural effusion. No pneumothorax. Heart/Mediastinum: Unremarkable. No cardiomegaly. Bones/joints: Internal fixation device of the right humeral head IMPRESSION: No acute findings.
--- NOTE | 2025-01-26 14:55 | HMH.EDGENADL ---
Discharge Plan Disposition Patient Disposition: Xfer Other Prescriptions Prescriptions: No Action fluoxetine 40 MG capsule 40 mg PO DAILY atorvastatin 10 MG tablet 10 mg PO HS tamsulosin 0.4 MG capsule 0.4 mg PO DAILY pantoprazole 40 MG tablet,delayed release (DR/EC) 40 mg PO DAILY trazodone 150 MG tablet 150 mg PO DAILY metoprolol tartrate 50 MG tablet 50 mg PO DAILY mirtazapine 45 MG tablet 45 mg PO DAILY finasteride 5 MG tablet 5 mg PO DAILY buspirone 15 MG tablet 15 mg PO BID Referrals Follow up/Referrals: Provider,Referral, MD [Primary Care Provider, Medical] - See instructions Clinical Impressions Clinical Impression: Suicidal ideation Stand Alone Forms Stand Alone Forms: Transfer Record - ED Print Language Print Language: Irish Discharge ED Provider: Rubia Montano Adult HPI <Dayana Escobar APRN - Last Filed: 01/26/25 19:48> General Chief complaint: Psychiatric Symptoms Stated complaint: chest pain Time Seen by Provider: 01/26/25 14:49 History of Present Illness HPI narrative: patient is a 54-year-old male PMHx history of alcohol use, history of self-harm, history of SI attempt who presents to the ED via EMS stating that he is suicidal. EMS reports that they were called out for chest pain, states patient told them they had chest pain and and route notified them that he was also suicidal. Related Data Home Medications ?Medication ?Instructions ?Recorded ?Confirmed atorvastatin 10 mg tablet 10 mg PO HS hld 01/03/22 01/03/22 buspirone 15 mg tablet 15 mg PO BID Depression 01/03/22 01/03/22 finasteride 5 mg tablet 5 mg PO DAILY urinary retention 01/03/22 01/03/22 fluoxetine 40 mg capsule 40 mg PO DAILY Depression 01/03/22 01/03/22 metoprolol tartrate 50 mg tablet 50 mg PO DAILY htn 01/03/22 01/03/22 mirtazapine 45 mg tablet 45 mg PO DAILY Depression 01/03/22 01/03/22 pantoprazole 40 mg tablet,delayed 40 mg PO DAILY GERD 01/03/22 01/03/22 release tamsulosin 0.4 mg capsule 0.4 mg PO DAILY urinary retention 01/03/22 01/03/22 trazodone 150 mg tablet 150 mg PO DAILY Depression 01/03/22 01/03/22 Allergies Allergy/AdvReac Type Severity Reaction Status Date / Time No Known Allergies Allergy Verified 01/03/22 00:08 [facility] <Dayana Escobar APRN - Last Filed: 01/26/25 19:48> [facility] Disclaimer: The information contained in this section may have been updated after the patient was seen, as this information can be updated by other users. Social History (Updated 11/16/22 @ 08:03 by Daljit Tellez (LAN)MD) Smoking Status: Current every day smoker alcohol intake: current current occupational status: unemployed Travel in the last 8 weeks?: None Have you lived/traveled outside [place] in past 30 days?: No Contact w/someone who lives/traveled outside US past 30 days?: No Exposure to someone with infectious disease in past 14 days?: No Do you have a fever (greater than 100.4 F or 38 C)?: No Have you tested positive for COVID-19?: No Exposed to someone with COVID-19 in past 14 days?: No Do you have a sore throat?: No Do you have a cough?: No Do you have any weakness?: No Do you have any diarrhea?: No Are you experiencing any unusual bleeding?: No Do you have any muscle aches/pain?: No Do you have any abdominal pain?: No Are you experiencing loss of taste or smell?: No Other Medical History Have you received the Flu Vaccine for this season: No Have you received the Pneumonia Vaccine: No <Dayana Escobar APRN - Last Filed: 01/26/25 19:48> ROS Obtained: Yes Systems reviewed as appropriate & no additional complaints except as documented Physical Exam <Dayana Escobar APRN - Last Filed: 01/26/25 19:48> General General appearance: alert and in no apparent distress Head Head exam: atraumatic Respiratory Respiratory exam: Present normal lung sounds bilaterally and respiratory distress Cardiovascular Cardiovascular exam: Present regular rate Abdominal Exam Abdominal exam: Present soft; Absent tenderness Neurological Exam Neurological exam: Present alert and oriented X3 Skin Skin exam: Present warm and dry Medical Decision Making <Dayana Escobar APRN - Last Filed: 01/26/25 19:48> Medical Records Screening: Per USPSTF and CDC recommendations, given the prevalence of disease in our region, it is our hospital?s policy to screen for HIV and viral Hepatitis for all patients aged 18 and over and those with ongoing risk factors. Malachi Inquiry Pt receiving controlled substance: No Vital Signs: 01/26/25 14:55 01/26/25 15:15 01/26/25 16:00 Temperature 98.7 F Temperature Source Oral Pulse Rate 76 72 Pulse Rate [Right] 80 Respiratory Rate 16 11 L Blood Pressure 149/78 H 147/83 H Blood Pressure [Right Arm] 153/77 H Blood Pressure Mean Blood Pressure Mean [Right Arm] 102 Blood Pressure Source Blood Pressure Position 02 Sat by Pulse Oximetry 98 98 98 Oxygen Delivery Method Room Air Room Air Room Air 01/26/25 16:33 01/26/25 17:00 01/26/25 17:26 Temperature Temperature Source Pulse Rate 74 71 73 Pulse Rate [Right] Respiratory Rate 10 L Blood Pressure 151/82 H 157/85 H 157/72 H Blood Pressure [Right Arm] Blood Pressure Mean Blood Pressure Mean [Right Arm] Blood Pressure Source Blood Pressure Position 02 Sat by Pulse Oximetry 99 99 98 Oxygen Delivery Method Room Air Room Air Room Air 01/26/25 17:54 01/26/25 18:09 01/26/25 18:15 Temperature Temperature Source Pulse Rate 72 68 Pulse Rate [Right] Respiratory Rate 15 13 14 Blood Pressure 175/77 H 204/97 H 194/103 H Blood Pressure [Right Arm] Blood Pressure Mean Blood Pressure Mean [Right Arm] Blood Pressure Source Blood Pressure Position 02 Sat by Pulse Oximetry 98 98 Oxygen Delivery Method 01/26/25 18:21 01/26/25 18:31 01/26/25 18:45 Temperature Temperature Source Pulse Rate 69 70 77 Pulse Rate [Right] Respiratory Rate 13 Blood Pressure 152/80 H 159/75 H 172/94 H Blood Pressure [Right Arm] Blood Pressure Mean Blood Pressure Mean [Right Arm] Blood Pressure Source Blood Pressure Position 02 Sat by Pulse Oximetry 98 98 98 Oxygen Delivery Method 01/26/25 19:00 01/26/25 19:30 01/26/25 19:45 Temperature Temperature Source Pulse Rate 71 Pulse Rate [Right] Respiratory Rate Blood Pressure 162/89 H 164/88 H 182/94 H Blood Pressure [Right Arm] Blood Pressure Mean 121 123 Blood Pressure Mean [Right Arm] Blood Pressure Source Blood Pressure Position 02 Sat by Pulse Oximetry 99 Oxygen Delivery Method 01/26/25 20:01 01/26/25 20:15 01/26/25 21:01 Temperature Temperature Source Pulse Rate 68 68 69 Pulse Rate [Right] Respiratory Rate Blood Pressure 162/85 H 175/84 H 175/85 H Blood Pressure [Right Arm] Blood Pressure Mean 110 105 115 Blood Pressure Mean [Right Arm] Blood Pressure Source Blood Pressure Position 02 Sat by Pulse Oximetry 98 98 98 Oxygen Delivery Method 01/26/25 21:15 01/26/25 21:30 01/26/25 21:45 Temperature Temperature Source Pulse Rate 68 68 69 Pulse Rate [Right] Respiratory Rate Blood Pressure 173/84 H 171/91 H 170/80 H Blood Pressure [Right Arm] Blood Pressure Mean 113 117 110 Blood Pressure Mean [Right Arm] Blood Pressure Source Blood Pressure Position 02 Sat by Pulse Oximetry 98 98 98 Oxygen Delivery Method 01/26/25 22:00 01/26/25 22:16 01/26/25 22:30 Temperature Temperature Source Pulse Rate 68 Pulse Rate [Right] Respiratory Rate Blood Pressure 174/90 H 182/87 H 170/90 H Blood Pressure [Right Arm] Blood Pressure Mean 118 127 130 Blood Pressure Mean [Right Arm] Blood Pressure Source Blood Pressure Position 02 Sat by Pulse Oximetry 98 Oxygen Delivery Method 01/26/25 22:45 01/26/25 23:00 01/26/25 23:15 Temperature Temperature Source Pulse Rate Pulse Rate [Right] Respiratory Rate Blood Pressure 174/126 H 161/83 H 170/86 H Blood Pressure [Right Arm] Blood Pressure Mean 142 109 114 Blood Pressure Mean [Right Arm] Blood Pressure Source Blood Pressure Position 02 Sat by Pulse Oximetry Oxygen Delivery Method 01/26/25 23:45 01/27/25 00:00 01/27/25 00:41 Temperature 98.7 F Temperature Source Oral Pulse Rate 78 Pulse Rate [Right] Respiratory Rate 16 Blood Pressure 178/89 H 189/99 H 189/99 H Blood Pressure [Right Arm] Blood Pressure Mean 118 112 Blood Pressure Mean [Right Arm] Blood Pressure Source Automatic Cuff Blood Pressure Position Sitting 02 Sat by Pulse Oximetry Oxygen Delivery Method Room Air Lab Data Lab Results 01/26/25 15:18: WBC 9.6, RBC 4.19 L, Hgb 13.1 L, Hct 37.6 L, MCV 89.7, MCH 31.3 H, MCHC 34.8, RDW 13.1, Plt Count 154, MPV 10.9 H, Neut % (Auto) 54.8, Lymph % (Auto) 26.7, [place] % (Auto) 7.5, Eos % (Auto) 10.3, Baso % (Auto) 0.5, Neut # (Auto) 5.2, Lymph # (Auto) 2.6, [place] # (Auto) 0.7, Eos # (Auto) 1.0 H, Baso # (Auto) 0.1, Sodium 139, Potassium 4.1, Chloride 104, Carbon Dioxide 27, Anion Gap 12.1, BUN 9, Creatinine 0.90, Estimated Creat Clear 117, Estimated GFR 89, Est GFR ( Amer) 107, Glucose 126 H, Calcium 9.1, Total Bilirubin 0.2, AST 29, ALT 30, Alkaline Phosphatase 95, Troponin I < 0.01, Total Protein 7.3, Albumin 4.5, Globulin 2.8, Albumin/Globulin Ratio 1.6, Salicylates < 1.0 L, Acetaminophen < 10 L, Plasma/Serum Alcohol < 10, HCV Ab SELVIN w/Rflx PCR Qn Negative, HIV Ag/Ab Combo Qual Negative 01/26/25 18:01: Urine Opiates Screen Negative, Urine Methadone Screen Negative, Ur Barbituates Screen Negative, Ur Phencyclidine Scrn Negative, Ur Amphetamines Screen Negative, U Benzodiazepines Scrn Negative, Urine Cocaine Screen Negative, U Marijuana (THC) Screen Negative 01/26/25 18:06: Troponin I < 0.01 01/26/25 15:18 01/26/25 15:18 Orders (Tests/Meds): ORDERS Category Date Time Status Consult to Behavioral Health [CONS] Stat Cons 01/26/25 15:05 Active CXR --portable [XR chest portable] Stat Exams 01/26/25 14:54 Completed Acetaminophen Stat Lab 01/26/25 15:18 Completed CBC w/Auto Diff [Complete Blood Count Auto Diff] Stat Lab 01/26/25 15:18 Completed CMP [Comprehensive Metabolic Panel] Stat Lab 01/26/25 15:18 Completed Drug Screen,Urine Stat Lab 01/26/25 18:01 Completed Ethyl Alcohol Stat Lab 01/26/25 15:18 Completed HIV Combo Stat Lab 01/26/25 15:18 Completed Hepatitis C Ab Qual. W/ RFX Stat Lab 01/26/25 15:18 Completed Salicylate Stat Lab 01/26/25 15:18 Completed Trop I [Troponin I] Stat Lab 01/26/25 15:18 Completed Troponin I Q3H Lab 01/26/25 18:06 Completed Medical Decision Narrative: In summary, patient is a 54-year-old male PMHx history of alcohol use, history of self-harm, history of SI attempt who presents to the ED via EMS stating that he is suicidal. EMS reports that they were called out for chest pain, states patient told them they had chest pain and and route notified them that he was also suicidal. Patient states that he would like to hang himself, reports that several years ago he had a suicide attempt. Patient appears to have a mental disability, is difficult to understand his speech. He denies fever, chills, body aches, current chest pain, shortness of breath, abdominal pain, nausea, vomiting. Differential diagnoses include ACS, dissection, pulmonary embolism, pneumonia, pneumothorax, among others. He is requesting to go to a mental facility today. I discussed with patient we will proceed with workup involving labs, EKG and chest x-ray. Patient was placed on a hold due to suicidal statements. CBC unremarkable for any leukocytosis, stable H&H. CMP overall unremarkable. First troponin < 0.01. Second troponin < 0.01. Negative salicylates acetaminophen alcohol. Chest x-ray unremarkable for any acute findings. We are attempting to transfer patient to a psychiatric facility per his request and the fact that he is suicidal. Patient is being transported to [facility] by law enforcement. He is hemodynamically stable <Michelle Redmond MD - Last Filed: 01/26/25 23:15> Vital Signs: 01/26/25 14:55 01/26/25 15:15 01/26/25 16:00 Temperature 98.7 F Temperature Source Oral Pulse Rate 76 72 Pulse Rate [Right] 80 Respiratory Rate 16 11 L Blood Pressure 149/78 H 147/83 H Blood Pressure [Right Arm] 153/77 H Blood Pressure Mean Blood Pressure Mean [Right Arm] 102 Blood Pressure Source Blood Pressure Position 02 Sat by Pulse Oximetry 98 98 98 Oxygen Delivery Method Room Air Room Air Room Air 01/26/25 16:33 01/26/25 17:00 01/26/25 17:26 Temperature Temperature Source Pulse Rate 74 71 73 Pulse Rate [Right] Respiratory Rate 10 L Blood Pressure 151/82 H 157/85 H 157/72 H Blood Pressure [Right Arm] Blood Pressure Mean Blood Pressure Mean [Right Arm] Blood Pressure Source Blood Pressure Position 02 Sat by Pulse Oximetry 99 99 98 Oxygen Delivery Method Room Air Room Air Room Air 01/26/25 17:54 01/26/25 18:09 01/26/25 18:15 Temperature Temperature Source Pulse Rate 72 68 Pulse Rate [Right] Respiratory Rate 15 13 14 Blood Pressure 175/77 H 204/97 H 194/103 H Blood Pressure [Right Arm] Blood Pressure Mean Blood Pressure Mean [Right Arm] Blood Pressure Source Blood Pressure Position 02 Sat by Pulse Oximetry 98 98 Oxygen Delivery Method 01/26/25 18:21 01/26/25 18:31 01/26/25 18:45 Temperature Temperature Source Pulse Rate 69 70 77 Pulse Rate [Right] Respiratory Rate 13 Blood Pressure 152/80 H 159/75 H 172/94 H Blood Pressure [Right Arm] Blood Pressure Mean Blood Pressure Mean [Right Arm] Blood Pressure Source Blood Pressure Position 02 Sat by Pulse Oximetry 98 98 98 Oxygen Delivery Method 01/26/25 19:00 01/26/25 19:30 01/26/25 19:45 Temperature Temperature Source Pulse Rate 71 Pulse Rate [Right] Respiratory Rate Blood Pressure 162/89 H 164/88 H 182/94 H Blood Pressure [Right Arm] Blood Pressure Mean 121 123 Blood Pressure Mean [Right Arm] Blood Pressure Source Blood Pressure Position 02 Sat by Pulse Oximetry 99 Oxygen Delivery Method 01/26/25 20:01 01/26/25 20:15 01/26/25 21:01 Temperature Temperature Source Pulse Rate 68 68 69 Pulse Rate [Right] Respiratory Rate Blood Pressure 162/85 H 175/84 H 175/85 H Blood Pressure [Right Arm] Blood Pressure Mean 110 105 115 Blood Pressure Mean [Right Arm] Blood Pressure Source Blood Pressure Position 02 Sat by Pulse Oximetry 98 98 98 Oxygen Delivery Method 01/26/25 21:15 01/26/25 21:30 01/26/25 21:45 Temperature Temperature Source Pulse Rate 68 68 69 Pulse Rate [Right] Respiratory Rate Blood Pressure 173/84 H 171/91 H 170/80 H Blood Pressure [Right Arm] Blood Pressure Mean 113 117 110 Blood Pressure Mean [Right Arm] Blood Pressure Source Blood Pressure Position 02 Sat by Pulse Oximetry 98 98 98 Oxygen Delivery Method 01/26/25 22:00 01/26/25 22:16 01/26/25 22:30 Temperature Temperature Source Pulse Rate 68 Pulse Rate [Right] Respiratory Rate Blood Pressure 174/90 H 182/87 H 170/90 H Blood Pressure [Right Arm] Blood Pressure Mean 118 127 130 Blood Pressure Mean [Right Arm] Blood Pressure Source Blood Pressure Position 02 Sat by Pulse Oximetry 98 Oxygen Delivery Method 01/26/25 22:45 01/26/25 23:00 01/26/25 23:15 Temperature Temperature Source Pulse Rate Pulse Rate [Right] Respiratory Rate Blood Pressure 174/126 H 161/83 H 170/86 H Blood Pressure [Right Arm] Blood Pressure Mean 142 109 114 Blood Pressure Mean [Right Arm] Blood Pressure Source Blood Pressure Position 02 Sat by Pulse Oximetry Oxygen Delivery Method 01/26/25 23:45 01/27/25 00:00 01/27/25 00:41 Temperature 98.7 F Temperature Source Oral Pulse Rate 78 Pulse Rate [Right] Respiratory Rate 16 Blood Pressure 178/89 H 189/99 H 189/99 H Blood Pressure [Right Arm] Blood Pressure Mean 118 112 Blood Pressure Mean [Right Arm] Blood Pressure Source Automatic Cuff Blood Pressure Position Sitting 02 Sat by Pulse Oximetry Oxygen Delivery Method Room Air Lab Data Lab Results 01/26/25 15:18: WBC 9.6, RBC 4.19 L, Hgb 13.1 L, Hct 37.6 L, MCV 89.7, MCH 31.3 H, MCHC 34.8, RDW 13.1, Plt Count 154, MPV 10.9 H, Neut % (Auto) 54.8, Lymph % (Auto) 26.7, [place] % (Auto) 7.5, Eos % (Auto) 10.3, Baso % (Auto) 0.5, Neut # (Auto) 5.2, Lymph # (Auto) 2.6, [place] # (Auto) 0.7, Eos # (Auto) 1.0 H, Baso # (Auto) 0.1, Sodium 139, Potassium 4.1, Chloride 104, Carbon Dioxide 27, Anion Gap 12.1, BUN 9, Creatinine 0.90, Estimated Creat Clear 117, Estimated GFR 89, Est GFR ( Amer) 107, Glucose 126 H, Calcium 9.1, Total Bilirubin 0.2, AST 29, ALT 30, Alkaline Phosphatase 95, Troponin I < 0.01, Total Protein 7.3, Albumin 4.5, Globulin 2.8, Albumin/Globulin Ratio 1.6, Salicylates < 1.0 L, Acetaminophen < 10 L, Plasma/Serum Alcohol < 10, HCV Ab SELVIN w/Rflx PCR Qn Negative, HIV Ag/Ab Combo Qual Negative 01/26/25 18:01: Urine Opiates Screen Negative, Urine Methadone Screen Negative, Ur Barbituates Screen Negative, Ur Phencyclidine Scrn Negative, Ur Amphetamines Screen Negative, U Benzodiazepines Scrn Negative, Urine Cocaine Screen Negative, U Marijuana (THC) Screen Negative 01/26/25 18:06: Troponin I < 0.01 Orders (Tests/Meds): ORDERS Category Date Time Status Consult to Behavioral Health [CONS] Stat Cons 01/26/25 15:05 Active CXR --portable [XR chest portable] Stat Exams 01/26/25 14:54 Completed Acetaminophen Stat Lab 01/26/25 15:18 Completed CBC w/Auto Diff [Complete Blood Count Auto Diff] Stat Lab 01/26/25 15:18 Completed CMP [Comprehensive Metabolic Panel] Stat Lab 01/26/25 15:18 Completed Drug Screen,Urine Stat Lab 01/26/25 18:01 Completed Ethyl Alcohol Stat Lab 01/26/25 15:18 Completed HIV Combo Stat Lab 01/26/25 15:18 Completed Hepatitis C Ab Qual. W/ RFX Stat Lab 01/26/25 15:18 Completed Salicylate Stat Lab 01/26/25 15:18 Completed Trop I [Troponin I] Stat Lab 01/26/25 15:18 Completed Troponin I Q3H Lab 01/26/25 18:06 Completed Medical Decision Narrative: In summary, patient is a 54-year-old male PMHx history of alcohol use, history of self-harm, history of SI attempt who presents to the ED via EMS stating that he is suicidal. EMS reports that they were called out for chest pain, states patient told them they had chest pain and and route notified them that he was also suicidal. Patient states that he would like to hang himself, reports that several years ago he had a suicide attempt. Patient appears to have a mental disability, is difficult to understand his speech. He denies fever, chills, body aches, current chest pain, shortness of breath, abdominal pain, nausea, vomiting. Differential diagnoses include ACS, dissection, pulmonary embolism, pneumonia, pneumothorax, among others. He is requesting to go to a mental facility today. I discussed with patient we will proceed with workup involving labs, EKG and chest x-ray. Patient was placed on a hold due to suicidal statements. CBC unremarkable for any leukocytosis, stable H&H. CMP overall unremarkable. First troponin < 0.01. Second troponin < 0.01. Negative salicylates acetaminophen alcohol. Chest x-ray unremarkable for any acute findings. We are attempting to transfer patient to a psychiatric facility per his request and the fact that he is suicidal. Patient is being transported to [facility] by law enforcement. He is hemodynamically stable We have accepting physician and patient is being admitted still awaiting transport but no further emergent medical intervention needed at this moment. I was consulted by the RADHA, and we discussed the complexity of the problems being addressed. I approved the treatment and management plan for this patient's care in the emergency department, thus performing a substantive portion of the medical decision making. Michelle Redmond MD, GATO, FACEP This is Dr. Redmond no further interventions have been needed an addendum will be added if anything changes. Critical Care <Dayana Escobar APRN - Last Filed: 01/26/25 19:48> Critical Care Time Critical Care Time: No
--- NOTE | 2025-01-26 15:05 | ECG_ITS ---
APPROVED REPORT Exam: Resting ECG HR:75 bpm ECG Measurements Heart Rate 75 AXES [place] 162 P 59 QRSd 86 QRS 47 QT 415 T 71 QTc 443 Conclusion SINUS RHYTHM NORMAL ECG UNCONFIRMED REPORT Electronically signed by : SHELBY HENRIQUEZ, 01/28/2025 04:21:55
--- OUTSIDE RECORDS SUMMARY | 2025-01-26 15:18 | XMS_ITS | Clinical Summary ---
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 MG TABS TAKE 1 TABLET BY MOUTH BID A DAY FOR 10 DAYS 12/02 PENICILLIN V POTASSIUM [id number] Daljit Darling APRN DEBROX 6.5 % SOLN 5-10 drops in both ears once or twice daily for 4 days 11/22 CARBAMIDE PEROXIDE 34883827206 Shante Spence APRN MIRALAX 17 GM/SCOOP POWD dissolve 1 capful in 4-8 oz liquid daily as needed for constipation 11/22 POLYETHYLENE GLYCOL 3350 [id number] Daljit Darling APRN DEBROX 6.5 % SOLN 5-10 drops in both ears once or twice daily for 4 days CARBAMIDE PEROXIDE 51666957044 Shante Gastenlinh MCGRAW TESSALON PERLES 100 MG ORAL CAPSULE TAKE 1 TO 2 CAPS BY MOUTH EVERY 8 HOURS NEEDED FOR COUGH BENZONATATE [id number] Shante Specne APRN FAMOTIDINE 20 MG TABS TAKE ONE TABLET BY MOUTH TWICE DAILY FAMOTIDINE [id number] Sharath Marshall MARILUZ AMOXICILLIN-POT CLAVULANATE 875-125 MG TABS ONE TABLET BY MOUTH TWICE A DAY 20180 08/12 AMOXICILLIN-POT CLAVULANATE 97920517238 Candice Fritz APRN ATORVASTATIN CALCIUM 10 MG TABS TAKE ONE TABLET BY MOUTH DAILY AT BEDTIME ATORVASTATIN CALCIUM [id number] Sharath Marshall MARILUZ FERROUS SULFATE 325 (65 Fe) MG TABS TAKE 1 TABLET BY MOUTH ONCE A DAY ON AN EMPTY STOMACH FERROUS SULFATE 83877119615 Candice Fritz APRN ATORVASTATIN CALCIUM 10 MG TABS TAKE ONE TABLET BY MOUTH DAILY AT BEDTIME ATORVASTATIN CALCIUM 92353689626 Candice Fritz APRN MACROBID 100 MG CAPS take one capsule by mouth twice a day 10/15 NITROFURANTOIN MONOHYD MACRO 92018222997 Candice Fritz APRN ATORVASTATIN CALCIUM 10 MG TABS TAKE ONE TABLET BY MOUTH DAILY AT BEDTIME ATORVASTATIN CALCIUM 92937008906 Candice Fritz APRN VITAMIN D (CHOLECALCIFEROL) 25 MCG (1000 UT) TABS TAKE 2 TABLETS BY MOUTH DAILY CHOLECALCIFEROL [id number] Candice Fritz APRN MIRALAX 17 GM/SCOOP POWD dissolve 1 capful in 4-8 oz liquid daily as needed for constipation POLYETHYLENE GLYCOL 3350 [id number] Candice Fritz APRN FLONASE ALLERGY RELIEF 50 MCG/ACT SUSP USE 2 SPRAYS IN EACH NOSTRIL 1 TIME A DAY FLUTICASONE PROPIONATE 31651179970 Candice Fritz APRN CETIRIZINE HCL 10 MG TABS TAKE 1 TABLET BY MOUTH EACH DAY NEEDED FOR ALLERGIES CETIRIZINE HCL 30409527730 Zaida Mojica APRN SODIUM CHLORIDE 1 GM TABS take one tablet by motuh daily SODIUM CHLORIDE 95712534592 Candice Fritz APRN TAMSULOSIN HCL 0.4 MG CAPS take one capsule by mouth every day TAMSULOSIN HCL 72561937972 Nery Reusch OPERATIONS VICE PRESIDENT FINASTERIDE 5 MG TABS take 1 tablet by mouth every night at bedtime FINASTERIDE [id number] Nery Reuscyana OPERATIONS VICE PRESIDENT FAMOTIDINE 20 MG TABS take one tablet by mouth twice daily FAMOTIDINE 00290249465 Sharath Marshall OPERATIONS VICE PRESIDENT PRILOSEC 20 MG ORAL CAPSULE DELAYED RELEASE TAKE 1 CAPSULE BY MOUTH 1 TIME A DAY FOR STOMACH 02/24 OMEPRAZOLE 78376728810 Kathya Holly OPERATIONS VICE PRESIDENT FLUTICASONE PROPIONATE 50 MCG/ACT SUSP 2 SPRAYS EACH NOSTRIL ONCE DAILY 02/24 FLUTICASONE PROPIONATE 12541857872 Kathya Holly OPERATIONS VICE PRESIDENT ATORVASTATIN CALCIUM 20 MG TABS TAKE 1 TAB ONCE DAILY AT BEDTIME 02/24 ATORVASTATIN CALCIUM [id number] Kathya Holly OPERATIONS VICE PRESIDENT LORATADINE 10 MG TABS TAKE 1 TABLET BY MOUTH 1 TIME A DAY 02/24 LORATADINE 71808836852 Kathya Holly APRN FISH OIL 1000 MG CAPS TAKE 1 CAPSULE BY MOUTH ONCE A DAY 02/24 OMEGA-3 FATTY ACIDS 01497272937 Kathya Holly APRN AMITRIPTYLINE HCL 25 MG TABS TAKE 1 TABLET BY MOUTH EVERY NIGHT AT BEDTIME 02/24 AMITRIPTYLINE HCL 89664134241 Kathya Holly APRN DICYCLOMINE HCL 20 MG TABS TAKE 1 TABLET BY MOUTH 4 TIMES A DAY NEEDED 02/24 DICYCLOMINE HCL 57668705877 Kathya Holyl APRN ATORVASTATIN CALCIUM 20 MG TABS TAKE 1 TAB ONCE DAILY AT BEDTIME ATORVASTATIN CALCIUM 51676772092 Arturo Diaz MD DICYCLOMINE HCL 20 MG TABS TAKE 1 TABLET BY MOUTH 4 TIMES A DAY NEEDED DICYCLOMINE HCL 29206784574 Arturo Diaz MD ATORVASTATIN CALCIUM 20 MG TABS TAKE 1 TAB ONCE DAILY AT BEDTIME ATORVASTATIN CALCIUM 79609206011 S-old J-old AMOXICILLIN 875 MG TABS TAKE 1 TABLET BY MOUTH 2 TIMES A DAY 07/23 AMOXICILLIN 51520122435 S-old J-old PROMETHAZINE HCL 12.5 MG TABS TAKE 1 TABLET BY MOUTH EVERY 6 HOURRS NEEDED FOR NAUSEA/VOMITIN G 01/19 PROMETHAZINE HCL 23998165840 Jas Cartagena MD DICYCLOMINE HCL 20 MG TABS TAKE 1 TABLET BY MOUTH 4 TIMES A DAY NEEDED DICYCLOMINE HCL 02267897257 Diane Spears MD AMITRIPTYLINE HCL 25 MG TABS TAKE 1 TABLET BY MOUTH EVERY NIGHT AT BEDTIME AMITRIPTYLINE HCL 39805533020 Diane Spears MD PRILOSEC 20 MG ORAL CAPSULE DELAYED RELEASE TAKE 1 CAPSULE BY MOUTH 1 TIME A DAY FOR STOMACH OMEPRAZOLE 84351039836 Diane Spears MD LORATADINE 10 MG TABS TAKE 1 TABLET BY MOUTH 1 TIME A DAY FOR ALLERGIES 09/15 LORATADINE 33319242249 Diane Spears MD CEPHALEXIN 500 MG CAPS TAKE 1 CAPSULE BY MOUTH 2 TIMES A DAY 09/15 CEPHALEXIN 43994266204 Diane Spears MD MUCINEX 600 MG [id number] TAKE 1 TABLET BY MOUTH 2 TIMES A DAY 09/15 GUAIFENESIN 50480452470 Diane Spears MD MIRALAX 17 GM/SCOOP POWD 1 SCOOP 1 TIMES A DAY MIXED IN 8OZ OF WATER FOR CONSTIPATION 09/15 POLYETHYLENE GLYCOL 3350 [id number] Diane Spears MD ATORVASTATIN CALCIUM 20 MG TABS TAKE 1 TAB ONCE DAILY AT BEDTIME ATORVASTATIN CALCIUM 59534442880 Diane Spears MD FISH OIL 1000 MG CAPS TAKE 1 CAPSULE BY MOUTH ONCE A DAY OMEGA-3 FATTY ACIDS 11684494659 Diane Spears MD ZETIA 10 MG TABS TAKE 1 TABLET BY MOUTH ONCE A DAY FOR CHOLESTEROL 07/22 EZETIMIBE 27690388172 Diane Spears MD ATORVASTATIN CALCIUM 20 MG TABS TAKE 1 TAB ONCE DAILY AT BEDTIME ATORVASTATIN CALCIUM 21786649819 iDane Spears MD MIRALAX 17 GM/SCOOP POWD 1 SCOOP 1 TIMES A DAY MIXED IN 8OZ OF WATER FOR CONSTIPATION POLYETHYLENE GLYCOL 3350 [id number] Diane Spears MD LORATADINE 10 MG TABS TAKE 1 TABLET BY MOUTH 1 TIME A DAY LORATADINE 66215242662 Diane Spears MD AMOXICILLIN 500 MG CAPS TAKE 1 CAPSULES BY MOUTH 2 TIMES A DAY AMOXICILLIN 57404127229 Diane Spears MD MUCINEX 600 MG [id number] TAKE 1 TABLET BY MOUTH 2 TIMES A DAY GUAIFENESIN 39874871322 Diane Spears MD CEPHALEXIN 500 MG CAPS TAKE 1 CAPSULE BY MOUTH 2 TIMES A DAY CEPHALEXIN 68169941835 Diane Spears MD ATORVASTATIN CALCIUM 20 MG TABS TAKE 1 TAB ONCE DAILY AT BEDTIME ATORVASTATIN CALCIUM 83056329025 Janelle Barber APRN IBUPROFEN 600 MG TABS TAKE 1 TABLET BY MOUTH EVERY 6 HOURS NEEDED WITH FOOD FOR PAIN 10/18 IBUPROFEN [id number] Janelle Barber APRN VICODIN 5-500 MG TABS TAKE 1 TAB EVERY 4-6 HOURS NEEDED FOR PAIN 10/18 HYDROCODONE-ACET AMINOPHEN 01231396446 Janelle Barber APRN LORATADINE 10 MG TABS TAKE 1 TABLET BY MOUTH 1 TIME A DAY FOR ALLERGIES LORATADINE 20632729875 Diane Spears MD FLUOXETINE HCL 40 MG CAPS TAKE 1 CAPSULE BY MOUTH ONCE A DAY FOR DEPRESSION/ANX IETY FLUOXETINE HCL 75202145005 Sharath Joanna OPERATIONS VICE PRESIDENT LIPITOR 10 MG TABS TAKE 1 TABLET BY MOUTH EVERY NIGHT AT BEDTIME FOR CHOLESTEROL ATORVASTATIN CALCIUM 40121436122 Janelle Barber APRN METOPROLOL TARTRATE 50 MG TABS TAKE 1 TABLET BY MOUTH 2 TIMES A DAY FOR B/P METOPROLOL TARTRATE 20870445829 Sharath Joanna OPERATIONS VICE PRESIDENT ZETIA 10 MG TABS TAKE 1 TABLET BY MOUTH ONCE A DAY FOR CHOLESTEROL EZETIMIBE 12618696489 Janelle Barber APRN IBUPROFEN 800 MG TABS TAKE 1 TABLET BY MOUTH EVERY 8 HOURS NEEDED 10/18 IBUPROFEN [id number] Janelle Barber APRN PROMETHAZINE-DM 6.25-15 MG/5ML SYRP 1 TSP BY MOUTH EVERY 4 HOURS NEEDED FOR COUGH 10/10 PROMETHAZINE-DM 08347229895 Janelle Barber APRN AZITHROMYCIN 250 MG TABS 2 TABS BY MOUTH DAY 1 THEN 1 TAB BY MOUTH EVERYDAY DAY 2 TO 5 09/15 AZITHROMYCIN 83503116656 Janelle Barber APRN PROMETHAZINE-DM 6.25-15 MG/5ML SYRP 5 ML BY MOUTH EVERY 4 HOURS NEEDED FOR COUGH 08/18 PROMETHAZINE-DM 32795196361 Arturo Diaz MD PROMETHAZINE HCL 25 MG TABS 1 BY MOUTH EVERY 6 HRS NEEDED 07/19 PROMETHAZINE HCL 93721698656 Arturo Diaz MD SULFAMETHOXAZOLE- TRIMETHOPRIM 800-160 MG TABS TAKE ONE TABLET TWICE DAILY FOR ONE WEEK. 07/19 SULFAMETHOXAZOLE -TRIMETHOPRIM 21206898476 Arturo Diaz MD VICODIN 5-500 MG TABS TAKE 1 TAB EVERY 4-6 HOURS NEEDED FOR PAIN HYDROCODONE-ACET AMINOPHEN 88666552949 Arturo Diaz MD ROBITUSSIN DM 100-10 MG/5ML ORAL SYRUP 10 ML BY MOUTH EVERY 6 HOURS NEEDED FOR COUGH 07/09 DEXTROMETHORPHAN -GUAIFENESIN 75512835865 Arturo Diaz MD AMOXICILLIN 875 MG TABS TAKE 1 TABLET BY MOUTH 2 TIMES A DAY 07/05 AMOXICILLIN 30673196210 Arturo Diaz MD LIPITOR 10 MG TABS TAKE 1 TABLET BY MOUTH EVERY NIGHT AT BEDTIME ATORVASTATIN CALCIUM 38128495873 Arturo Diaz MD IBUPROFEN 800 MG TABS TAKE 1 TABLET BY MOUTH EVERY 8 HOURS NEEDED IBUPROFEN 32631875823 Arturo Diaz MD SULFAMETHOXAZOLE- TRIMETHOPRIM 800-160 MG TABS TAKE ONE TABLET TWICE DAILY FOR ONE WEEK. SULFAMETHOXAZOLE -TRIMETHOPRIM 42504147516 Delmy Barfield OPERATIONS VICE PRESIDENT ROBITUSSIN DM 100-10 MG/5ML ORAL SYRUP 10 ML BY MOUTH EVERY 6 HOURS NEEDED FOR COUGH 07/29 DEXTROMETHORPHAN -GUAIFENESIN 38259696728 Arturo Diaz MD IBUPROFEN 600 MG TABS TAKE 1 TABLET BY MOUTH EVERY 6 HOURS NEEDED WITH FOOD FOR PAIN IBUPROFEN 54010727238 Arturo Diaz MD METOPROLOL TARTRATE 50 MG TABS TAKE 1 TABLET BY MOUTH 2 TIMES A DAY METOPROLOL TARTRATE 77455984085 Arturo Diaz MD LEVOCETIRIZINE DIHYDROCHLORIDE 5 MG TABS TAKE 1 TAB ONCE DAILY 07/14 LEVOCETIRIZINE DIHYDROCHLORIDE 13475466962 Arturo Diaz MD LORATADINE 10 MG TABS TAKE 1 TABLET BY MOUTH 1 TIME A DAY LORATADINE 29368296747 Arturo Diaz MD FLUTICASONE PROPIONATE 50 MCG/ACT SUSP 2 SPRAYS EACH NOSTRIL ONCE DAILY FLUTICASONE PROPIONATE 97359640724 Jas Cartagena MD LEVOCETIRIZINE DIHYDROCHLORIDE 5 MG TABS TAKE 1 TAB ONCE DAILY LEVOCETIRIZINE DIHYDROCHLORIDE 96108377334 Janelle Barber APRN FLUOXETINE HCL 40 MG CAPS TAKE 1 CAPSULE BY MOUTH ONCE A DAY FLUOXETINE HCL 97603789218 Arturo Diaz MD AVELOX 400 MG ORAL TABLET TAKE 1 TABLET BY MOUTH 1 TIME A DAY 01/02 MOXIFLOXACIN HCL 09659595777 Arturo Diaz MD PROMETHAZINE HCL 25 MG TABS 1 BY MOUTH EVERY 6 HRS NEEDED PROMETHAZINE HCL 80935575761 Arturo Diaz MD AVELOX 400 MG ORAL TABLET TAKE 1 TABLET BY MOUTH 1 TIME A DAY MOXIFLOXACIN HCL 21577240409 Arturo Diaz MD AMOXICILLIN 875 MG TABS TAKE 1 TABLET BY MOUTH 2 TIMES A DAY 11/30 AMOXICILLIN 23706567454 Arturo Diaz MD RANITIDINE HCL 150 MG ORAL TABLET Take 1 tablet by mouth twice a day RANITIDINE HCL 48326015604 Janelle Barber APRN OMEPRAZOLE 20 MG CPDR TAKE 1 TABLET BY MOUTH TWICE A DAY OMEPRAZOLE 55258612303 Suzanne Washburn PA-C LORATADINE 10 MG TABS TAKE 1 TABLET BY MOUTH 1 TIME A DAY NEEDED FOR ALLERGIES LORATADINE 91638027097 Suzanne Washburn PA-C NASONEX 50 MCG/ACT NASAL SUSPENSION USE 2 SPRAYS IN EACH NOSTRIL 1 TIME A DAY MOMETASONE FUROATE 27212601222 Arturo Diaz MD IBUPROFEN 600 MG TABS TAKE 1 TABLET BY MOUTH EVERY 6 HOURS NEEDED WITH FOOD FOR PAIN IBUPROFEN 95419209106 Arturo Diaz MD TESSALON PERLES 100 MG ORAL CAPSULE 1 TO 2 CAPS BY MOUTH EVERY 8 HOURS NEEDED FOR COUGH 07/29 BENZONATATE 54018394238 Shante Ferreira TESSALON PERLES 100 MG ORAL CAPSULE 1 TO 2 CAPS BY MOUTH EVERY 8 HOURS NEEDED FOR COUGH BENZONATATE 76225972971 Arturo Diaz MD ZITHROMAX Z-ARIN 250 MG TABS TAKE 2 TABLETS BY MOUTH ON DAY 1 THEN 1 TABLET BY MOUTH FOR 4 DAYS (DAY 2-5) 07/14 AZITHROMYCIN 37500009666 Arturo Diaz MD LORATADINE 10 MG TABS TAKE 1 TABLET BY MOUTH 1 TIME A DAY 06/30 LORATADINE 41173841829 Arturo Diaz MD REMERON 15 MG TABS TAKE 1 TABLET BY MOUTH EVERY NIGHT 06/30 MIRTAZAPINE 12704629545 Arturo Diaz MD NASONEX 50 MCG/ACT NASAL SUSPENSION USE 2 SPRAYS IN EACH NOSTRIL 1 TIME A DAY 06/30 MOMETASONE FUROATE 99686302078 Arturo Diaz MD TRIAMCINOLONE ACETONIDE 0.1 % CREA APPLY TO AFFECTED AREA TWICE A DAY 01/05 TRIAMCINOLONE ACETONIDE 09679305974 Arturo Diaz MD PRAVASTATIN SODIUM 20 MG TABS TAKE 1 TABLET BY MOUTH EVERY NIGHT AT BEDTIME 01/05 PRAVASTATIN SODIUM 86470646459 Arturo Diaz MD ANUSOL-HC 2.5 % RECTAL CREAM APPLY TO AFFECTED AREA 4 TIMES A DAY NEEDED 01/05 HYDROCORTISONE 24008867180 Arturo Diaz MD DICYCLOMINE HCL 20 MG TABS TAKE 1 TABLET BY MOUTH 4 TIMES A DAY NEEDED 01/05 DICYCLOMINE HCL 89242142734 Arturo Diaz MD LEVSIN 0.125 MG TABS 2 TABLETS BY MOUTH EVERY 4 HOURS NEEDED FOR CRAMPING FOR 12 DOSES 01/05 HYOSCYAMINE SULFATE 60321052493 Arturo Diaz MD PROMETHAZINE HCL 25 MG TABS 1 BY MOUTH EVERY 6 HRS NEEDED 01/05 PROMETHAZINE HCL 68477419794 Arturo Diaz MD HYDROCODONE-ACETA MINOPHEN 5-500 MG ORAL TABLET TAKE 1 AND 1/2 TO 2 TABLETS BY MOUTH EVERY 6 HOURS NEEDED FOR PAIN 01/05 HYDROCODONE-ACET AMINOPHEN 37040106031 Arturo Diaz MD PENICILLIN V POTASSIUM 250 MG TABS TAKE 1 TABLET BY MOUTH 4 TIMES A DAY 01/05 PENICILLIN V POTASSIUM 32799264605 Arturo Diaz MD PENICILLIN V POTASSIUM 250 MG TABS TAKE 1 TABLET BY MOUTH 4 TIMES A DAY PENICILLIN V POTASSIUM 06034355506 Delmy Barfield APRN HYDROCODONE-ACETA MINOPHEN 5-500 MG ORAL TABLET TAKE 1 AND 1/2 TO 2 TABLETS BY MOUTH EVERY 6 HOURS NEEDED FOR PAIN HYDROCODONE-ACET AMINOPHEN 05607587616 Arturo Diaz MD HYDROCODONE-ACETA MINOPHEN 5-500 MG ORAL TABLET TAKE 1 TABLET BY MOUTH EVERY 6 HOURS NEEDED FOR PAIN HYDROCODONE-ACET AMINOPHEN 10100969517 [facility] PROMETHAZINE HCL 25 MG TABS 1 BY MOUTH EVERY 6 HRS NEEDED PROMETHAZINE HCL 98496202335 Arturo Diaz MD LEVSIN 0.125 MG TABS 2 TABLETS BY MOUTH EVERY 4 HOURS NEEDED FOR CRAMPING FOR 12 DOSES HYOSCYAMINE SULFATE 33944464970 Devyn fernandez DICYCLOMINE HCL 20 MG TABS TAKE 1 TABLET BY MOUTH 4 TIMES A DAY NEEDED DICYCLOMINE HCL 37770161584 Arturo Lowe MD PRAVASTATIN SODIUM 20 MG TABS TAKE 1 TABLET BY MOUTH EVERY NIGHT AT BEDTIME PRAVASTATIN SODIUM 05479518055 Arturo Diaz MD ANUSOL-HC 2.5 % RECTAL CREAM APPLY TO AFFECTED AREA 4 TIMES A DAY NEEDED HYDROCORTISONE 27297147579 Arturo Diaz MD NASONEX 50 MCG/ACT NASAL SUSPENSION USE 2 SPRAYS IN EACH NOSTRIL 1 TIME A DAY MOMETASONE FUROATE 23311865842 Arturo Diaz MD LORATADINE 10 MG TABS TAKE 1 TABLET BY MOUTH 1 TIME A DAY LORATADINE 08224228643 Arturo Diaz MD PROMETHAZINE HCL 25 MG TABS 1 BY MOUTH EVERY 6 HRS NEEDED 08/08 PROMETHAZINE HCL 82643298549 Arturo Diaz MD TRIAMCINOLONE ACETONIDE 0.1 % CREA APPLY TO AFFECTED AREA TWICE A DAY TRIAMCINOLONE ACETONIDE 74598937490 Arturo Diaz MD PROMETHAZINE HCL 25 MG TABS 1 BY MOUTH EVERY 6 HRS NEEDED PROMETHAZINE HCL 10313120301 Arturo Diaz MD AMOXICILLIN 875 MG TABS TAKE 1 TABLET BY MOUTH 2 TIMES A DAY 07/29 AMOXICILLIN 28662789425 Arturo Diaz MD PRAVASTATIN SODIUM 20 MG TABS TAKE 1 TABLET BY MOUTH EVERY NIGHT AT BEDTIME PRAVASTATIN SODIUM 90880327479 Arturo Diaz MD CHOLESTYRAMINE 4 GM PACK Take one packet with 6 ounces of water 3-4 times a day 07/18 CHOLESTYRAMINE 69714450511 Arturo Diaz MD DOXAZOSIN MESYLATE 2 MG TABS TAKE 1 TABLET BY MOUTH ONCE A DAY 07/18 DOXAZOSIN MESYLATE 85343674880 Chio Pérez LOMOTIL 2.5-0.025 MG TABS TAKE 1 TABLET BY MOUTH EVERY 3-4 HOURS NEEDED FOR DIARRHEA 01/11 DIPHENOXYLATE-AT ROPINE 23123464538 Arturo Diaz MD CHOLESTYRAMINE 4 GM PACK Take one packet with 6 ounces of water 3-4 times a day CHOLESTYRAMINE 51258011319 Arturo Diaz MD LOMOTIL 2.5-0.025 MG TABS TAKE 1 TABLET BY MOUTH EVERY 3-4 HOURS NEEDED FOR DIARRHEA DIPHENOXYLATE-AT ROPINE 46439588099 Suzanne Washburn PA-C OMEPRAZOLE 20 MG CPDR TAKE 1 TABLET BY MOUTH TWICE A DAY OMEPRAZOLE 62754058694 Arturo Diaz MD ZETIA 10 MG TABS TAKE 1 TABLET BY MOUTH ONCE A DAY EZETIMIBE 68599776496 Arturo Diaz MD DOXAZOSIN MESYLATE 2 MG TABS TAKE 1 TABLET BY MOUTH ONCE A DAY DOXAZOSIN MESYLATE 93789767393 Suzanne Washburn PA-C FLUOXETINE HCL 20 MG CAPS TAKE 1 CAPSULE BY MOUTH ONCE A DAY FLUOXETINE HCL 43966563979 Arturo Diaz MD REMERON 15 MG TABS TAKE 1 TABLET BY MOUTH EVERY NIGHT MIRTAZAPINE 59204343896 Arturo Diaz MD METOPROLOL TARTRATE 100 MG TABS TAKE 1 TABLET BY MOUTH TWICE A DAY METOPROLOL TARTRATE 19133860960 Arturo Diaz MD OMEPRAZOLE 20 MG CPDR 1 PO BID OMEPRAZOLE 88284829847 Arturo Diaz MD ZETIA 10 MG TABS 1 PO QD EZETIMIBE 67168975817 Arturo Diaz MD DOXAZOSIN MESYLATE 2 MG TABS 1 PO QD DOXAZOSIN MESYLATE 74030345330 Arturo Diaz MD FLUOXETINE HCL 20 MG CAPS 1 PO QD FLUOXETINE HCL 77379981268 Arturo Diaz MD REMERON 15 MG TABS 1 PO Q HS MIRTAZAPINE 12929355396 Arturo Diaz MD METOPROLOL TARTRATE 100 MG TABS 1 PO BID METOPROLOL TARTRATE 81260053335 Arturo Diaz MD OMEPRAZOLE 20 MG CPDR OMEPRAZOLE 19880111706 Shante Logan MA ZETIA 10 MG TABS 1 qd EZETIMIBE 24845363600 Shante Logan MA DOXAZOSIN MESYLATE 2 MG TABS 1 po q hs DOXAZOSIN MESYLATE 83992032481 Shante Logan MA FLUOXETINE HCL 20 MG CAPS 1 qd FLUOXETINE HCL 05110712871 Shante Logan MA MIRTAZAPINE 30 MG TABS 1 q hs MIRTAZAPINE 91454562037 Shante Logan MA METOPROLOL TARTRATE 100 MG TABS 1 bid METOPROLOL TARTRATE 61534830044 Shante Logan MA Medications Administered No information available. Allergies, Adverse Reactions, Alerts Allergy Name Reaction Description Start Date Severity Statu s Provider CIPRO BREAKS OUT IN HIVES Critical Active Arturo Diaz MD Results Date Name Value Unit Range Flag Description Lab Report: Auto Diff, CBC PLATELETS 177 X10(3)/MCL 10*3/mm 3 140-400 Platelets [#/volume] in Blood by Automated count RBC 5.27 X10(6)/MCL 10*6/mm 3 4.20-5.80 Erythrocytes [#/volume] in Blood by Automated count WBC COUNT 9.7 X10(3)/MCL 10*3/uL 3.8-10.8 leukocyte count, blood BASOPH COUNT 0.04 X10(3)/MCL 10*3/mm 3 0.00-0.20 Basophils [#/volume] in Blood by Manual count EOS COUNT 0.16 X10(3)/MCL 10*3/mm 3 0.01-0.50 eosinophil count, blood MONOSCT AUTO 0.71 X10(3)/MCL 10*3/uL 0.20-0.95 Monocytes [#/volume] in Blood by Automated count LYMPHCT AUTO 3.46 X10(3)/MCL 10*3/mm 3 0.85-3.90 Lymphocytes [#/volume] in Blood by Automated count ANC 5.33 X10(3)/MCL 10*3/mm 3 1.50-7.80 neutrophil count, blood BASOPHIL % 0.4 % 0.0-1.0 Basophils/ 100 leukocytes in Blood by Manual count % EOS AUTO 1.7 % 0.0-8.0 Eosinophil s/100 leukocytes in Blood by Automated count Lab Report: CMP, Lipid Scr GFR >^60 mL/min Glomerular filtration rate/1.73 sq M.predicted among non-blacks [Volume Rate/Area] in Serum, Plasma or Blood by Creatinine-based formula (MDRD) GFRAA >^60 mL/min Glomerular Filtration rate CREATINE SER 0.9 mg/dL 0.7-1.3 creatine , serum CO2 PLSM/SER 30 MMOL/L 22-31 carbon d ioxide, serum or plasma Lab Report: TESTOSTERONE,TOT AL,MALES TESTO, TOTAL TNP ng/dL Testoste primo [Mass/volume] in Serum or Plasma Office Visit: FU PANIC ATTAC K RM 12 -LO COMP LDL GOAL <100 mg/dL LDL target l evel Lab Report: LIPID PANEL WITH REFLEX TO DIRECT LDL, LIPID PANEL WITH REFL ... TSHREFLX FT4 1.25 m[iU]/L 0.40-4.50 N TSH (t hyroid stimulating hormone) with reflex FT4 Lab Report: BASIC METABOLIC PANEL, LIPID PANEL WITH REFLEX TO DIRECT LDL ... TRIGLYCRDES 253 mg/dL <150 H Triglycer kiah [Mass/volume] in Serum or Plasma - mg/dL Lab Report: COMPREHENSIVE VT TABOLIC PANEL BG RANDOM 79 mg/dL 65-99 N Glucose [Mass/volume] in Blood Office Visit: f/u/ med refil l / rm 3 H.PYLORI SCN negative Helicob acter pylori screen, serum Lab Report: LIPID PANEL WITH REFLEX TO DIRECT LDL, LIPID PANEL WITH REFL ... T3 TOTAL 0.67 ng/mL Units converted. See lab report for original value. L Triiodothyronine (T3) [Mass/volume] in Serum or Plasma TLDLDIR 141 mg/dL <130 H Cholesterol i n LDL [Mass/volume] in Serum or Plasma - mg/dL Append: UA AND STOOL RESULTS HEMOCCULT negative Hemoglobin .gastroin testinal [Presence] in Stool GLUCOSE, URN 100 mg Glucose [Mass/volume] in Urine by Test strip KETONES URN negative Ketones [Mass/volume] in Urine by Test strip BLOOD UR DIP large blood in urine (hemoglobin) by dipstick PROTEIN, URN 30 mg protein, urine, semiquantitative (dipstick) UROBILINOGEN 0.2 Urobilin ogen [Presence] in Urine by Test strip NITRITE URN negative Nitrite [Presence] in Urine by Test strip WBC DIPSTK U small Leukocyt e esterase [Presence] in Urine by Test strip Lab Report: URINALYSIS, COMP LETE W/REFLEX TO CULTURE, REFLEXIVE URINE CU ... HYAL CAST UR 0-1 /[LPF] NONE SEEN A Hyalin e casts [#/area] in Urine sediment by Microscopy low power field ERA SED UR MANY NONE OR FE A amorph ous sediment, urine BACTERIA URN NONE SEEN NONE SEEN N Bact eria [#/area] in Urine sediment by Microscopy high power field EPI CAST UR 0-5 /[LPF] < OR = 5 epitheli al casts, urine RBC CASTS 3-10 < OR = 2 A RBC casts, urine WBC UR 0-5 /[HPF] < OR = 5 N leukocytes, number seen, urine specimen, by microscopy BLOOD UR 3+ NEGATIVE A BLOOD, URIN E (hematuria) KETONES UR NEGATIVE NEGATIVE N KETONES, URINE BILIRUBIN UR NEGATIVE NEGATIVE N Biliru bin.total [Presence] in Urine by Test strip GLUCOSE UA TRACE mg/dL NEGATIVE A Glucose [Mass/volume] in Urine by Test strip PH URINE 6.5 5.0-8.0 N pH of Urine by Test strip SPEC GR URIN 1.026 1.001-1.03 N Speci fic gravity of Urine by Test strip APPEARANCE U TURBID CLEAR A Appearan ce of Urine UA COLOR YELLOW YELLOW N Color of Uri ne Lab Report: LIPID PANEL WITH REFLEX TO DIRECT LDL, LIPID PANEL WITH REFL ... VIT D 25-OH 54 ng/mL 30-100 N 25-Hydrox ycalcifero l [Mass/volume] in Serum or Plasma Lab Report: HEPATIC FUNCTION PANEL, CBC (INCLUDES DIFF/PLT) BILI DIRECT 0.1 mg/dL < OR = 0.2 N Biliru bin.direct [Mass/volume] in Serum or Plasma Lab Report: LIPID PANEL WITH REFLEX TO DIRECT LDL, LIPID PANEL WITH REFL ... IRON SATUR % 21 % (CALC) % 15-60 N Iron saturation [Mass Fraction] in Serum or Plasma IRON 73 ug/dL 50-180 N Iron [Mass/vo lume] in Serum or Plasma Lab Report: Alcohol Medical ALCOHOL, BLD 63 mg/dL <=10 H alcohol, blood Lab Report: LIPID PANEL WITH REFLEX TO DIRECT LDL, LIPID PANEL WITH REFL ... HGBA1C 4.5 % OF TOTAL HGB % <5.7 N Hemoglobin A1c/Hemoglobin, total in Blood - % TSH 2.06 u[iU]/m L 0.40-4.50 N Thyrotropin [Units/volume] in Serum or Plasma BASO % MANU 0.5 % N basophils as percent of blood leukocytes, manual count EOS % MANU 1.7 % N eosinophil s as percent of blood leukocytes, manual count MONOCYTE % 8.7 % N Monocytes/ 100 leukocytes in Blood by Automated count LYMPH% P BLD 26.1 % N lymphocy ramiro as percent of blood leukocytes PMN % 63 % N Neutrophils/1 00 leukocytes in Blood by Automated count ABS BASOS 39 {Cells} /uL 0-200 N Basophils [#/volume] in Blood ABS EOS 131 {Cells} /uL 15-500 N Eosinophils [#/volume] in Blood ABS MONOS 670 {Cells} /uL 200-950 N Monocytes [#/volume] in Blood ABSLYMPHCT 2010 {Cells} /uL 850-3900 N Lymphocytes [#/volume] in Blood ABS NEUTROPH 4851 CELLS/UL 10*3/uL 2558-6963 N Neutrophils [#/volume] in Blood MPV 11.0 fL 7.5-12.5 N Platelet marie n volume [Entitic volume] in Blood by Tony PLATELETK/UL 193 THOUSAND/UL 10*3/uL 140-400 N platelet count RDW 13.8 % 11.0-15.0 N Erythrocyte distribution width [Ratio] by Automated count OL-MCHC 34.9 g/dL 32.0-36.0 N mean corpus cular hemoglobin concentration, rbc MCH 31.5 pg 27.0-33.0 N MCH [Entiti c mass] by Automated count MCV 90.2 fL 80.0-100.0 N MCV [Entit ic volume] by Automated count HCT 46.7 % 38.5-50.0 N Hematocrit [Volume Fraction] of Blood by Automated count HGB 16.3 g/dL 13.2-17.1 N Hemoglobin [Mass/volume] in Blood RBC M/UL 5.18 MILLION/UL 10*6/uL 4.20-5.80 N red blood count WBC CT BLOOD 7.7 10*3/uL 3.8-10.8 N leukocy te count, blood Office Visit: covid rm 1 michelle dy LABS ORDERED Influenza Detect 79922, Strep Screen 13145 Laboratory tests ordered INFLUEN A AG positive A Influ ronnie virus A Ag [Presence] in Specimen by Immune diffusion (ID) RAPID STREP negative Streptoc occus pyogenes DNA [Presence] in Throat by JOEY with probe detection Lab Report: CULTURE, THROAT STREP SCREEN See Note Below Streptococcus.be ta- hemolytic [Presence] in Throat by Organism specific culture Lab Report: LIPID PANEL WITH REFLEX TO DIRECT LDL, LIPID PANEL WITH REFL ... SGPT (ALT) 34 U/L 9-46 N Alanine aminotransferase [Enzymatic activity/volume] in Serum or Plasma SGOT (AST) 25 U/L 10-40 N Aspartate aminotransferase [Enzymatic activity/volume] in Serum or Plasma ALK PHOS 106 U/L 36-130 N Alkaline phosphatase [Enzymatic activity/volume] in Blood BILI TOTAL 0.5 mg/dL 0.2-1.2 N Bilirubin. total [Mass/volume] in Serum or Plasma A/G RATIO 1.5 (calc) 1.0-2.5 N Albumin/ Globulin [Mass Ratio] in Serum or Plasma GLOBULIN TOT 2.9 G/DL (CALC) g/dL 1.9-3.7 N Globulin [Mass/volume] in Serum ALBUMIN EOP 4.3 g/dL 3.6-5.1 N Albumin [Mass/volume] in Serum or Plasma by Electrophoresis PROTEIN, TOT 7.2 g/dL 6.1-8.1 N Protein [Mass/volume] in Serum or Plasma CALCIUM 9.0 mg/dL 8.6-10.3 N Calcium [Moles/volume] in Serum or Plasma CO2 29 mmol/L 20-32 N Carbon dioxid e, total [Moles/volume] in Venous blood CHLORIDE BLD 105 mmol/L 98-110 N chloride , blood POTASSIUM 4.5 mmol/L 3.5-5.3 N Potassium [Moles/volume] in Serum or Plasma SODIUM 141 mmol/L 135-146 N Sodium [Moles/volume] in Serum or Plasma BUN/CREAT NOT APPLICABLE (calc) 6-22 Urea nitrogen/Creatinine [Mass Ratio] in Serum or Plasma EGFR IF AFA 88 mL/min/ 1.73m2 >OR = 60 N Glomerular filtration rate/1.73 sq M.predicted among blacks [Volume Rate/Area] in Serum, Plasma or Blood by Creatinine-based formula (MDRD) EGFR 76 mL/min/ 1.73m2 >OR = 60 N Glomerular filtration rate/1.73 sq M.predicted [Volume Rate/Area] in Serum, Plasma or Blood by Creatinine-based formula (MDRD) CREATININE 1.14 mg/dL 0.60-1.35 N Creatini ne [Mass/volume] in Serum or Plasma BUN 13 mg/dL 7-25 N Urea nitrogen [Mass/volume] in Serum or Plasma GLUCOSE SER 102 mg/dL 65-99 H Glucose [Mass/volume] in Serum or Plasma NON-HDL CHOL 131 MG/DL (CALC) mg/dL <130 H cholesterol, non-HDL, total CHOL/HDL % 4.4 (calc) <5.0 N cholest vidya/HDL ratio, serum, percent LDL 94 MG/DL (CALC) mg/dL N Cholesterol in L DL [Mass/volume] in Serum or Plasma - mg/dL TRIGLYC TOT 241 mg/dL <150 H Triglycer kiah [Mass/volume] in Serum or Plasma - mg/dL HDL 38 mg/dL >OR = 40 L Cholesterol in HDL [Mass/volume] in Serum or Plasma - mg/dL CHOLESTEROL 169 mg/dL <200 N Cholester ol [Mass/volume] in Serum or Plasma - mg/dL Plan of Care Type Date Detail Care Plan Problems: BODY M ASS INDEX (BMI) 27.0-27.9; ADULT Goal: Reduce Weight Target: Lose 1-2lbs / week Instructions: Clinician: Nutrition counseling;Clinician: Activity counseling;Patient: Follow prescribed low calorie diet;Patient: Daily activity as tolerated Referral [facility] U[facility], [address] [place] [address] [address], [place], [address] Referral excluded fr om report: Referral [facility] U[facility], [address] [place] [address] [address], [place], [address] Referral [facility], [address] [place] [address], [address] Referral excluded fr om report: [facility], [place], [address] Referral [facility], [address] [place], [address] Referral excluded fr om report: Referral [facility]rology [facility], [address] [facility] [address], [place], [address] Referral Physical Therapy Referral [facility], [place] Referral excluded fr om report: Referral Gastroenterology Referral [facility], [address], [place], [address] Referral excluded fr om report: Referral Urology [facility]erral [facility], [address], [place], [address] Referral Gastroenterology Referral [facility], [address], [place], [address] Referral Physical Therapy Referral [facility] [place] Referral [facility]NT Ref[facility], [address] [facility] [address], [place], [address] Pending order T1 CMP Pending order T1 Lipid Panel Pending order Patient Pay- COV ID-19 Pending order Influenza Detect 75250 Pending order Strep Screen 878 80 Pending order T1 Throat Cultur e Pending order T1 CBC with diff Pending order T1 CMP Pending order T1 Lipid Panel Pending order T1 TSH reflex to free T4 Pending order T1 Prostate Scre ening Pending order ECG 12+ leads; w read & rpt (Don't use for [facility]) 24673 Pending order T1 CMP Pending order T1 Lipid Panel Pending order T1 CBC with diff Pending order T1 CMP Pending order T1 Lipid Panel Pending order T1 HGBA1c Pending order T1 TSH reflex to free T4 Pending order Strep Screen 878 80 Pending order T1 CBC with diff Pending order T1 CMP Pending order T1 Lipid Panel Pending order T1 HGBA1c Pending order Strep Screen 878 80 Pending order T1 Throat Cultur e Pending order T1 CBC with diff Pending order T1 CMP Pending order T1 CBC with diff Pending order T1 CMP Pending order T1 HGBA1c Pending order T1 Lipid Panel Pending order T1 TIBC w iron l evel Pending order Strep Screen 878 80 Pending order T1 CBC with diff Pending order T1 CMP Pending order T1 TIBC w iron l evel Pending order T1 CBC with diff Pending order T1 Hepatic Funct ion Panel Pending order Ultrasound RUQ Pending order T1 CBC with diff Pending order T1 CMP Pending order T1 Lipid Panel Pending order T1 TIBC w iron l evel Pending order T2 Vitamin D 25 Hydroxy Pending order Urine Culture Pending order Other Pending order Hemoccult 1-3 82 271 Pending order CBC with diff Pending order Urine Dip Auto 8 1003 Pending order CBC with diff Pending order CMP Pending order Lipid Panel Pending order HGBA1c Pending order T3 Total Pending order TSH reflex to fr ee T4 Pending order CBC with diff Pending order Vitamin D 25 Hyd long Pending order H-pylori -Medica l Only 88757 Pending order Medication Recon ciliation Pending order SNOMED-CT: 14422 [id number] Current Medications Documented Pending order Adacel Pending order Fluzone Preserva tive Free Intramuscular Suspension Pending order IMADM >18YR IM R OUTE 1ST VAC/TOXOID Pending order IMADM >18YR IM R OUTE EA ADDL VAC/TOXOID Pending order SNOMED-CT: 10002 [id number] Current Medications Documented Pending order CMP Pending order Lipid Profile Pending order SGPT (ALT) Pending order SGOT (AST) Pending order SGOT (AST) Pending Order exclud ed from report: Pending order SGPT (ALT) Pending Order exclud ed from report: Pending order Lipid Profile Pending Order exclud ed from report: Pending order BMP Pending order Lipid Panel Pending order CMP Pending order Lipid Panel Pending order TSH reflex to fr ee T4 Pending order Hepatitic Functi on Panel Pending order Urine Dip Auto 8 1003 Pending order Immunization(s) Ordered Pending order Flu 3 yrs and ol shane Pending order IMADM >18YR IM R OUTE 1ST VAC/TOXOID Pending order X-Ray Shoulder Pending order CBC with diff Pending order CMP Pending order Lipid Panel Pending order HGBA1c Pending order TSH reflex to fr ee T4 Pending order Strep Screen Pending order Throat Culture Pending order Ultrasound Gall Bladder Pending order Stool O&P Pending order Stool Culture Pending order CMP Pending order Lipid Panel Pending order CMP Pending order Lipid Panel Pending order CBC with diff Pending order CMP (Outside Lab ) Pending order CBC with diff (O utside Lab) Pending order Lipid Panel (Out side Lab) Patient education Medications Patient education Patient Educat ion Given Patient education Patient Educat ion Given Patient education Medications Patient education Patient Educat ion Given Patient education Patient Educat ion Given Patient education Patient Educat ion Given Patient education Patient Educat ion Given Patient education Patient Educat ion Given Patient education Medications Patient education Patient Educat ion Given Patient education Patient Educat ion Given Patient education Medications Patient education Patient Educat ion Given Patient education Patient Educat ion Given Patient education Medications Patient education Medications Patient education Medications Patient education Medications Patient education Patient Educat ion Given Patient education Medications Patient education Medications Patient education Medications Procedures Code Procedure Name Date Entry Date [facility]-[id number] Medication Reconciliation CPT-3074F Most recent systolic blood pressure <130 mm Hg CPT-3079F Most recent diastoli c blood pressure 80-89 mm Hg CPT-1159F Medication list docu mented in medical record CPT-1160F Review of all medica tions by a prescribing practitioner [facility] 63268 T1 CMP [facility] 63057 T1 Lipid Panel CPT-44124 Phone Communication Non-MD only 5-10 mins [facility] 80887 Patient Pay- COVID-19 07/17 CPT-90717 Influenza Detect 09556 07/17 CPT-60679 Strep Screen 69417 2 CPT-3074F Most recent systolic blood pressure <130 mm Hg CPT-3078F Most recent diastoli c blood pressure <80 mm Hg SCT-[id number] Medication Reconciliation [facility] 394 T1 Throat Culture SCT-[id number] Medication Reconciliation CPT-G8731 Pain assessment docu mented as negative, no care plan required CPT-G8542 Documented functiona l outcome assessment; no functional deficiencies identified G0438 [facility] Annual Wellness Exam First G0438 20 15/05/17 CPT-3074F Most recent systolic blood pressure <130 mm Hg CPT-3078F Most recent diastoli c blood pressure <80 mm Hg CPT-1159F Medication list docu mented in medical record CPT-1160F Review of all medica tions by a prescribing practitioner CPT-1170F Functional status assessed 2 CPT-1125F Pain severity quantified; pain present 15/05/17 CPT-13007 Remove Impacted Cerumen 1 or 2 ears 74291 CPT-84715 Prevnar 13 Intramuscular Suspension 05/12 99942 Flulaval Quadrivalent 07/12 CPT-17506 IMADM >18YR IM ROUTE 1ST VAC/TOXOID 05/12 CPT-79180 IMADM >18YR IM ROUTE EA ADDL VAC/TOXOID 2 CPT-90323 ECG 12+ leads; w micehlle d & rpt (Don't use for [facility]) 93284 [facility] 6399 T1 CBC with diff [facility] 64384 T1 CMP [facility] 87679 T1 Lipid Panel [facility] 10774 T1 TSH reflex to free T4 202 [facility] 5363 T1 Prostate Screening 07/12 [facility]-[id number] Medication Reconciliation CPT-3074F Most recent systolic blood pressure <130 mm Hg CPT-3078F Most recent diastoli c blood pressure <80 mm Hg SCT-[id number] SNOMED-CT: 340576866 623856 Current Medications Documented CPT-1159F Medication list docu mented in medical record CPT-1160F Review of all medica tions by a prescribing practitioner [facility] 16522 T1 CMP [facility] 67703 T1 Lipid Panel CPT-1159F Medication list docu mented in medical record CPT-3074F Most recent systolic blood pressure <130 mm Hg CPT-3079F Most recent diastoli c blood pressure 80-89 mm Hg SCT-[id number] Medication Reconciliation [facility] 6399 T1 CBC with diff [facility] 52461 T1 CMP [facility] 87665 T1 Lipid Panel [facility] 496 T1 HGBA1c [facility] 47434 T1 TSH reflex to free T4 202 SCT-[id number] Medication Reconciliation SCT-[id number] Medication Reconciliation CPT-3074F Most recent systolic blood pressure <130 mm Hg CPT-3078F Most recent diastoli c blood pressure <80 mm Hg SCT-707815621530661 Medication Reconciliation [facility] 394 T1 Throat Culture CPT-3074F Most recent systolic blood pressure <130 mm Hg CPT-3078F Most recent diastoli c blood pressure <80 mm Hg CPT-51977 Strep Screen 72026 3 CPT-3074F Most recent systolic blood pressure <130 mm Hg CPT-3078F Most recent diastoli c blood pressure <80 mm Hg SCT-[id number] Medication Reconciliation SCT-[id number] Medication Reconciliation CPT-3074F Most recent systolic blood pressure <130 mm Hg CPT-3079F Most recent diastoli c blood pressure 80-89 mm Hg CPT-90350 Engerix-B Intramuscu lar Injectable 20 MCG/ML CPT-39840 Havrix Intramuscular Suspension 1440 EL U/ML CPT-03904 IMADM >18YR IM ROUTE 1ST VAC/TOXOID 11/26 CPT-97889 IMADM >18YR IM ROUTE EA ADDL VAC/TOXOID 2 CPT-3074F Most recent systolic blood pressure <130 mm Hg CPT-3078F Most recent diastoli c blood pressure <80 mm Hg SCT-[id number] Medication Reconciliation [facility] 04895 T1 CMP [facility] 96914 T1 Lipid Panel [facility] 496 T1 HGBA1c CPT-3074F Most recent systolic blood pressure <130 mm Hg CPT-3078F Most recent diastoli c blood pressure <80 mm Hg [facility] 6399 T1 CBC with diff Urology [facility]erral [facility] SCT-[id number] Medication Reconciliation CPT-3074F Most recent systolic blood pressure <130 mm Hg CPT-3078F Most recent diastoli c blood pressure <80 mm Hg SCT-[id number] Medication Reconciliation CPT-3074F Most recent systolic blood pressure <130 mm Hg CPT-3079F Most recent diastoli c blood pressure 80-89 mm Hg CPT-02009 Fluzone Quadrivalent Preservative Free prefilled syringe (36 mos +) CPT-20488 IMADM >18YR IM ROUTE 1ST VAC/TOXOID 04/19 CPT-3075F Most recent systolic blood pressure 130-139 mm Hg CPT-3079F Most recent diastoli c blood pressure 80-89 mm Hg CPT-53923 Strep Screen 46070 1 SCT-[id number] Medication Reconciliation [facility] 394 T1 Throat Culture SCT-[id number] Medication Reconciliation CPT-3074F Most recent systolic blood pressure <130 mm Hg CPT-3079F Most recent diastoli c blood pressure 80-89 mm Hg [facility] 6399 T1 CBC with diff [facility] 06145 T1 CMP SCT-[id number] Medication Reconciliation CPT-3074F Most recent systolic blood pressure <130 mm Hg CPT-3078F Most recent diastoli c blood pressure <80 mm Hg SCT-301223052036977 Medication Reconciliation CPT-3074F Most recent systolic blood pressure <130 mm Hg CPT-3078F Most recent diastoli c blood pressure <80 mm Hg [facility] 6399 T1 CBC with diff [facility] 83501 T1 CMP [facility] 496 T1 HGBA1c [facility] 22217 T1 Lipid Panel [facility] 7573 T1 TIBC w iron level SCT-[id number] Medication Reconciliation CPT-3074F Most recent systolic blood pressure <130 mm Hg CPT-3078F Most recent diastoli c blood pressure <80 mm Hg CPT-11274 Strep Screen 50008 5 SCT-[id number] Medication Reconciliation CPT-3074F Most recent systolic blood pressure <130 mm Hg CPT-3078F Most recent diastoli c blood pressure <80 mm Hg CPT-54622 Fluzone Quadrivalent Preservative Free prefilled syringe (36 mos +) CPT-90139 IMADM >18YR IM ROUTE 1ST VAC/TOXOID 04/13 [facility] 6399 T1 CBC with diff [facility] 23933 T1 CMP [facility] 7573 T1 TIBC w iron level SCT-703634694815257 Medication Reconciliation CPT-3074F Most recent systolic blood pressure <130 mm Hg CPT-3078F Most recent diastoli c blood pressure <80 mm Hg [facility] 6399 T1 CBC with diff [facility] 19335 T1 Hepatic Function Panel 20 12/03/19 [facility] Ultrasound RUQ SCT-[id number] Medication Reconciliation CPT-3074F Most recent systolic blood pressure <130 mm Hg CPT-3078F Most recent diastoli c blood pressure <80 mm Hg [facility] 6399 T1 CBC with diff [facility] 78299 T1 CMP [facility] 94280 T1 Lipid Panel [facility] 7573 T1 TIBC w iron level [facility] 27005 T2 Vitamin D 25 Hydroxy 2016 395 [facility] Test # Urine Culture Other [facility] Other Urology Referral [facility] CPT-3074F Most recent systolic blood pressure <130 mm Hg CPT-3078F Most recent diastoli c blood pressure <80 mm Hg SCT-789983084228356 Medication Reconciliation CPT-81306 Hemoccult 1-3 58766 CPT-44455 Urine Dip Auto 04832 6399 [facility] Test # CBC with diff 3 SCT-337034285527063 Medication Reconciliation 32329 [facility] # CMP 8 53235 [facility] # Lipid Panel 8 496 [facility] # HGBA1c [facility]# -62995 T3 Total 30976 [facility] Test # TSH reflex to free T4 6399 [facility] # CBC with diff 8 24022 [facility] # Vitamin D 25 Hydroxy 2 SCT-[id number] Medication Reconciliation SCT-[id number] Medication Reconciliation SCT-135322071402633 SNOMED-CT: 586335951 524668 Current Medications Documented SCT-[id number] Medication Reconciliation CPT-88150 H-pylori -Medical Only 14324 SCT-[id number] Medication Reconciliation SCT-509386359967996 SNOMED-CT: 089892606 782475 Current Medications Documented SCT-490338575421486 Medication Reconciliation SCT-678181521121311 Medication Reconciliation [facility] 03/03 SCT-[id number] Medication Reconciliation SCT-683940720232467 SNOMED-CT: 389243861 750490 Current Medications Documented CPT-06018 Fluzone Preservative Free Intramuscular Suspension CPT-92680 IMADM >18YR IM ROUTE 1ST VAC/TOXOID 04/13 CPT-98356 IMADM >18YR IM ROUTE EA ADDL VAC/TOXOID 2 CPT-01631 Adacel SCT-165079480897063 SNOMED-CT: 017510735 397414 Current Medications Documented 09933 [facility] # CMP 1 [id number] SGOT (AST) [id number] SGPT (ALT) [id number],[id number] Lipid Profile [facility]rology [facility] 12/16 27504 [facility] # BMP 5 95729 [facility] # Lipid Panel PHY THER [facility] Cov Physical Therapy Ref erral [facility] [address]85[address] [facility] Test # Hepatitic Function Panel 09215 [facility] Test # TSH reflex to free T4 03877 [facility] # Lipid Panel 9 19675 [facility] # CMP 9 UROLOGY URO GRP Urology Referral [facility] CPT-77846 Urine Dip Auto 99041 CPT-43173 Flu 3 yrs and older CPT-42403 IMADM >18YR IM ROUTE 1ST VAC/TOXOID 05/14 IMMORDER Immunization(s) Ordered 2012 [facility] Ref[facility] X-Ray Shoulder X-Ray Shoulder 6399 [facility] # CBC with diff 3 89327 [facility] # CMP 3 98598 [facility] # Lipid Panel 3 496 [facility] # HGBA1c 38001 [facility] # TSH reflex to free T4 [facility] CPT-20011 Strep Screen 394 [facility] # Throat Culture 6 [facility] Ultrasound Gall Bladder 2011 CPT-67284 Stool O&P CPT-42385 Stool Culture CPT II 1000F #114: Tobacco use assessed 2 CPT II 1036F #114: Current tobacco non-user CPT-G8457 #115: Current tobacco non-user CPT II 1000F #114: Tobacco use assessed 2 CPT II 1035F #114: Current smokeless tobacco user 2011 CPT-G8456 #115: Current smokeless tobacco user 2011 CPT II 4000F #115: Tobacco use ce ssation counseling intervention CPT-82705 Venipuncture CPT-68415 CMP CPT-52277 Lipid Panel CPT-30427 Venipuncture CPT-42496 CMP CPT-45251 Lipid Panel CPT-60886 CBC with diff CPT-G8447 Encounter documented using a certified EH R CPT-60204 CMP (Outside Lab) CPT-64442 CBC with diff (Outside Lab) CPT-00023 Lipid Panel (Outside Lab) 04/05/08 Vital Signs Date Name Value Unit Description BMI (Body Mass Index) 26.97 kg/m2 Bod y Mass Index (Ratio) Body Temperature 97.2 [degF] temperat ure E&M Body Temperature 36.22 [place] temperat ure in centigrade E&M BP Diastolic 81 mm[Hg] blood pressu re, diastolic BP Systolic 128 mm[Hg] blood pressur e, systolic BSA (Body Surface Area) 2.01 b nichole surface area Heart Rate 106 /min pulse rate Height 69 [in_us] height E&M Height 175.26 cm height in cent imeters E&M Weight Measured 182 [lb_av] weight E& M Weight Measured 182 [lb_av] weight E& M Weight Measured 82.73 kg weight in kilograms E&M Respiratory Rate 16 /min respirat ory rate E&M Heart Rate 67 /min pulse rate, [place], right Heart Rate 73 /min pulse rate, si tting, right Heart Rate 76 /min pulse rate, st anding Immunizations Vaccine Administration Date Standard Description CVX Co de Dose flu vax 88 Unknown flu vax #2 141 Unknown Influenza Influenza 140 0.5 mL Tdap Tdap 115 0.5 mL PRIVATE Fluzone Quadrivalent Prefilled Syringe 0.5 ML for 36 mos + PRIVATE Fluzone Quadrivalent Prefilled Syringe 0.5 ML for 36 mos + 150 0.5 mL PRIVATE Fluzone Quadrivalent Prefilled Syringe 0.5 ML for 36 mos + PRIVATE Fluzone Quadrivalent Prefilled Syringe 0.5 ML for 36 mos + 150 0.5 mL Havrix Intramuscular Suspension 1440 EL U/ML Havrix Intramuscular Suspension 1440 EL U/ML 52 1.0 mL Engerix-B Injection Suspension 20 MCG/ML (20 yrs +) Engerix-B Injection Suspension 20 MCG/ML (20 yrs +) 43 0.5 mL PRIVATE Flulaval Quadrivalent Prefilled Syringe 0.5 ML 6 mos - 64 years PRIVATE Flulaval Quadrivalent Prefilled Syringe 0.5 ML 6 mos - 64 years 150 0.5 mL Prevnar 13 Intramuscular Suspension Prevnar 13 Intramuscular Suspension 133 0.5 ML Advance Directives Directive Description Start Date DISCUSSED WITH PATIENT -- NO DECISION DAYNE JOSUE HIPAA DISCLOSURE
--- OUTSIDE RECORDS SUMMARY | 2025-01-26 15:18 | XMS_ITS | Patient Health Record ---
Author Organization [facility] Address [address] [id number] Care Team Providers Care Bulk Station Agent Name Role Phone Rebeca Ingram Unavailable [phone] Allergies Allergen (clinical drug ingredient) Drug/Non Drug Allergy documented on EMR Reaction Allergy Type Onset Date Status morphine Morphine Unknown Drug Allergy Active ciprofloxacin Ciprofloxacin Unknown Drug Allergy Active Reason For Referral No Information Medications Medication SIG (Take, Route, Frequency, Duration) [...] 1 capsule Orally Once a day Active Problems Problem Type SNOMED Code ICD Code Onset Dates Problem Status W/U Status Risk Notes Problem Generalized anxiety disorder (12996458) Generalized anxiety disorder (F41.1) Active confirmed Problem Moderate recurrent major depression (09116715) Major depressive disorder, recurrent, moderate (F33.1) Active confirmed Problem Impulse control disorder (93799924) Impulse disorder, unspecified (F63.9) Active confirmed Problem Intellectual disability (718994871) Intellectual disability (F79) Active confirmed Problem Alcohol use disorder (1391778955) Alcohol use disorder (F10.90) Active confirmed Encounters Encounter Location Date Provider Diagnosis [facility] [address] [place] [id number] 04/29/2024 Rebeca Ingram Major depressive disorder, recurrent, moderate F33.1 ; Generalized anxiety disorder F41.1 ; Intellectual disability F79 ; Impulse disorder, unspecified F63.9 and Alcohol use disorder F10.90 [facility] [address] [place] [phone] 05/27/2024 Rebeca Nataly Major depressive disorder, recurrent, moderate F33.1 ; Generalized anxiety disorder F41.1 ; Intellectual disability F79 ; Impulse disorder, unspecified F63.9 and Alcohol use disorder F10.90 [facility] [address] [place] [address], [place] [phone] 06/10/2024 Rebeca Nataly Major depressive disorder, recurrent, moderate F33.1 ; Generalized anxiety disorder F41.1 ; Intellectual disability F79 ; Impulse disorder, unspecified F63.9 and Alcohol use disorder F10.90 [facility] [address] [place] [address], [place] [phone] 06/24/2024 Rebeca Nataly Major depressive disorder, recurrent, moderate F33.1 ; Generalized anxiety disorder F41.1 ; Intellectual disability F79 ; Impulse disorder, unspecified F63.9 and Alcohol use disorder F10.90 [facility] [address] [place] [address], [place] [phone] 07/08/2024 Rebeca Nataly Major depressive disorder, recurrent, moderate F33.1 ; Generalized anxiety disorder F41.1 ; Intellectual disability F79 ; Impulse disorder, unspecified F63.9 and Alcohol use disorder F10.90 [facility] [address] [place] [address], [place] [phone] 07/22/2024 Rebeca Nataly Major depressive disorder, recurrent, moderate F33.1 ; Generalized anxiety disorder F41.1 ; Intellectual disability F79 ; Impulse disorder, unspecified F63.9 and Alcohol use disorder F10.90 [facility] [address] [place] [address], [place] [phone] 08/19/2024 Rebeca Nataly Major depressive disorder, recurrent, moderate F33.1 ; Generalized anxiety disorder F41.1 ; Intellectual disability F79 ; Impulse disorder, unspecified F63.9 and Alcohol use disorder F10.90 [facility] [address] [place] [address], [place] [address] 09/02/2024 Rebeca Nataly Major depressive disorder, recurrent, moderate F33.1 ; Generalized anxiety disorder F41.1 ; Intellectual disability F79 ; Impulse disorder, unspecified F63.9 and Alcohol use disorder F10.90 [facility] [address] [place] [address], [place] [address] 09/16/2024 Rebeca Turneren Major depressive disorder, recurrent, moderate F33.1 ; Generalized anxiety disorder F41.1 ; Intellectual disability F79 ; Impulse disorder, unspecified F63.9 and Alcohol use disorder F10.90 [facility] [address] [place] [phone] 09/28/2024 Rebeca Nataly Major depressive disorder, recurrent, moderate F33.1 ; Generalized anxiety disorder F41.1 ; Intellectual disability F79 ; Impulse disorder, unspecified F63.9 and Alcohol use disorder F10.90 [facility] [address] [place] [address], [place] [phone] 10/28/2024 Rebeca Nataly Major depressive disorder, recurrent, moderate F33.1 ; Generalized anxiety disorder F41.1 ; Intellectual disability F79 ; Impulse disorder, unspecified F63.9 and Alcohol use disorder F10.90 [facility] [address] [place] [address], [place] [address] 11/25/2024 Rebeca Nataly Major depressive disorder, recurrent, moderate F33.1 ; Generalized anxiety disorder F41.1 ; Intellectual disability F79 ; Impulse disorder, unspecified F63.9 and Alcohol use disorder F10.90 [facility] [address] [place] [address], [place] [address] 01/06/2025 Rebeca Nataly Major depressive disorder, recurrent, moderate F33.1 ; Generalized anxiety disorder F41.1 ; Intellectual disability F79 ; Impulse disorder, unspecified F63.9 and Alcohol use disorder F10.90 Assessments Encounter Date Diagnosis (ICD Code) Assessment Notes Treatment Notes Treatment Clinical Notes Section Notes 04/29/2024 Major depressive disorder, recurrent, moderate (ICD-10 - F33.1) 05/27/2024 Major depressive disorder, recurrent, moderate (ICD-10 - F33.1) 06/10/2024 Major depressive disorder, recurrent, moderate (ICD-10 - F33.1) 06/24/2024 Major depressive disorder, recurrent, moderate (ICD-10 - F33.1) 07/08/2024 Major depressive disorder, recurrent, moderate (ICD-10 - F33.1) 07/22/2024 Major depressive disorder, recurrent, moderate (ICD-10 - F33.1) Remeron decreased to 15mg QHS 07/22/2024 to aide with sleep. 08/19/2024 Major depressive disorder, recurrent, moderate (ICD-10 - F33.1) Remeron decreased to 15mg QHS 07/22/2024 to aide with sleep. 09/02/2024 Major depressive disorder, recurrent, moderate (ICD-10 - F33.1) Remeron decreased to 15mg QHS 07/22/2024 to aide with sleep. 09/16/2024 Major depressive disorder, recurrent, moderate (ICD-10 - F33.1) Remeron decreased to 15mg QHS 07/22/2024 to aide with sleep. 09/28/2024 Major depressive disorder, recurrent, moderate (ICD-10 - F33.1) Remeron decreased to 15mg QHS 07/22/2024 to aide with sleep. 10/28/2024 Major depressive disorder, recurrent, moderate (ICD-10 - F33.1) Remeron decreased to 15mg QHS 07/22/2024 to aide with sleep. 11/25/2024 Major depressive disorder, recurrent, moderate (ICD-10 - F33.1) Remeron decreased to 15mg QHS 07/22/2024 to aide with sleep. 01/06/2025 Major depressive disorder, recurrent, moderate (ICD-10 - F33.1) Remeron decreased to 15mg QHS 07/22/2024 to aide with sleep. 04/29/2024 Generalized anxiety disorder (ICD-10 - F41.1) 05/27/2024 Generalized anxiety disorder (ICD-10 - F41.1) 06/10/2024 Generalized anxiety disorder (ICD-10 - F41.1) 06/24/2024 Generalized anxiety disorder (ICD-10 - F41.1) 07/08/2024 Generalized anxiety disorder (ICD-10 - F41.1) 07/22/2024 Generalized anxiety disorder (ICD-10 - F41.1) 08/19/2024 Generalized anxiety disorder (ICD-10 - F41.1) 09/02/2024 Generalized anxiety disorder (ICD-10 - F41.1) 09/16/2024 Generalized anxiety disorder (ICD-10 - F41.1) 09/28/2024 Generalized anxiety disorder (ICD-10 - F41.1) 10/28/2024 Generalized anxiety disorder (ICD-10 - F41.1) 11/25/2024 Generalized anxiety disorder (ICD-10 - F41.1) 01/06/2025 Generalized anxiety disorder (ICD-10 - F41.1) 04/29/2024 Intellectual disability (ICD-10 - F79) 05/27/2024 Intellectual disability (ICD-10 - F79) No pharmocological intervention needed at this time. 06/10/2024 Intellectual disability (ICD-10 - F79) No pharmocological intervention needed at this time. 06/24/2024 Intellectual disability (ICD-10 - F79) No pharmocological intervention needed at this time. 07/08/2024 Intellectual disability (ICD-10 - F79) No pharmocological intervention needed at this time. 07/22/2024 Intellectual disability (ICD-10 - F79) No pharmocological intervention needed at this time. 08/19/2024 Intellectual disability (ICD-10 - F79) No pharmocological intervention needed at this time. 09/02/2024 Intellectual disability (ICD-10 - F79) No pharmocological intervention needed at this time. 09/16/2024 Intellectual disability (ICD-10 - F79) No pharmocological intervention needed at this time. 09/28/2024 Intellectual disability (ICD-10 - F79) No pharmocological intervention needed at this time. 10/28/2024 Intellectual disability (ICD-10 - F79) No pharmocological intervention needed at this time. 11/25/2024 Intellectual disability (ICD-10 - F79) No pharmocological intervention needed at this time. 01/06/2025 Intellectual disability (ICD-10 - F79) No pharmocological intervention needed at this time. 04/29/2024 Impulse disorder, unspecified (ICD-10 - F63.9) 05/27/2024 Impulse disorder, unspecified (ICD-10 - F63.9) No pharmacological intervention needed at this time. 06/10/2024 Impulse disorder, unspecified (ICD-10 - F63.9) Depakote prescribed 06/10/2024 to treat increased impulsivity, aggression, and agitation in recent weeks. 06/24/2024 Impulse disorder, unspecified (ICD-10 - F63.9) Depakote prescribed 06/10/2024 to treat increased impulsivity, aggression, and agitation in recent weeks. 07/08/2024 Impulse disorder, unspecified (ICD-10 - F63.9) Depakote prescribed 06/10/2024 to treat increased impulsivity, aggression, and agitation in recent weeks. 07/22/2024 Impulse disorder, unspecified (ICD-10 - F63.9) Depakote prescribed 06/10/2024 to treat increased impulsivity, aggression, and agitation in recent weeks. 08/19/2024 Impulse disorder, unspecified (ICD-10 - F63.9) Depakote prescribed 06/10/2024 to treat increased impulsivity, aggression, and agitation in recent weeks. 09/02/2024 Impulse disorder, unspecified (ICD-10 - F63.9) Depakote prescribed 06/10/2024 to treat increased impulsivity, aggression, and agitation in recent weeks. 09/16/2024 Impulse disorder, unspecified (ICD-10 - F63.9) Depakote prescribed 06/10/2024 to treat increased impulsivity, aggression, and agitation in recent weeks. 09/28/2024 Impulse disorder, unspecified (ICD-10 - F63.9) Depakote prescribed 06/10/2024 to treat increased impulsivity, aggression, and agitation in recent weeks. 10/28/2024 Impulse disorder, unspecified (ICD-10 - F63.9) Depakote prescribed 06/10/2024 to treat increased impulsivity, aggression, and agitation in recent weeks. 11/25/2024 Impulse disorder, unspecified (ICD-10 - F63.9) Depakote prescribed 06/10/2024 to treat increased impulsivity, aggression, and agitation in recent weeks. 01/06/2025 Impulse disorder, unspecified (ICD-10 - F63.9) Depakote prescribed 06/10/2024 to treat increased impulsivity, aggression, and agitation in recent weeks. 04/29/2024 Alcohol use disorder (ICD-10 - F10.90) 05/27/2024 Alcohol use disorder (ICD-10 - F10.90) Recommend continued abstinence. 06/10/2024 Alcohol use disorder (ICD-10 - F10.90) Recommend continued abstinence. 06/24/2024 Alcohol use disorder (ICD-10 - F10.90) Recommend continued abstinence. 07/08/2024 Alcohol use disorder (ICD-10 - F10.90) Recommend continued abstinence. 07/22/2024 Alcohol use disorder (ICD-10 - F10.90) Recommend continued abstinence. 08/19/2024 Alcohol use disorder (ICD-10 - F10.90) Recommend continued abstinence. 09/02/2024 Alcohol use disorder (ICD-10 - F10.90) Recommend continued abstinence. 09/16/2024 Alcohol use disorder (ICD-10 - F10.90) Recommend continued abstinence. 09/28/2024 Alcohol use disorder (ICD-10 - F10.90) Recommend continued abstinence. 10/28/2024 Alcohol use disorder (ICD-10 - F10.90) Recommend continued abstinence. 11/25/2024 Alcohol use disorder (ICD-10 - F10.90) Recommend continued abstinence. 01/06/2025 Alcohol use disorder (ICD-10 - F10.90) Recommend continued abstinence. 04/29/2024 Other 1) Continue current regimen as patient's symptoms are improved at the lowest effective dose and patient has achieved maximal functioning and able to be cared for appropriately. 2) Continue to provide psychiatric support and medication management. Please call with signs of distress or mood changes that arise. Total time spent assessing patient, reviewing chart, and coordinating care: 28 minutes 05/27/2024 Other 1) Continue current regimen as patient's symptoms are improved at the lowest effective dose and patient has achieved maximal functioning and able to be cared for appropriately. 2) Continue to provide psychiatric support and medication management. Please call with signs of distress or mood changes that arise. Total time spent assessing patient, reviewing chart, and coordinating care: 27 minutes 06/10/2024 Other 1) Administer Depakote DR 250mg BID to treat increased impulsivity, agitation, and aggression. 2) Continue to provide psychiatric support and medication management. Please call with signs of distress or mood changes that arise. Total time spent assessing patient, reviewing chart, and coordinating care: 36 minutes 06/24/2024 Other 1) No changes will be made to psychotropic medication regimen today. Depakote DR 250mg BID was added at visit two weeks ago to treat increased impulsivity, agitation, and aggression. 2) Continue to provide psychiatric support and medication management. Please call with signs of distress or mood changes that arise. Total time spent assessing patient, reviewing chart, and coordinating care: 37 minutes 07/08/2024 Other 1) No changes will be made to psychotropic medication regimen today. Patient exhibits improved mood stability and decreased impulsivity with addition of Depakote last month. 2) Continue to provide psychiatric support and medication management. Please call with signs of distress or mood changes that arise. Total time spent assessing patient, reviewing chart, and coordinating care: 32 minutes 07/22/2024 Other 1) Decrease Remeron to 15mg daily at bedtime to aide with sleep. 2) Continue to provide psychiatric support and medication management. Please call with signs of distress or mood changes that arise. Total time spent assessing patient, reviewing chart, and coordinating care: 37 minutes 08/19/2024 Other 1) No changes to psychotropic medication regimen. Patient was hospitalized since last visit and returned from a week long admission without any changes to his medication. 2) Continue to provide psychiatric support and medication management. Please call with signs of distress or mood changes that arise. Total time spent assessing patient, reviewing chart, and coordinating care: 36 minutes 09/02/2024 Other 1) No changes to psychotropic medication regimen. Patient was hospitalized since last visit and returned from a week long admission without any changes to his medication. 2) Continue to provide psychiatric support and medication management. Please call with signs of distress or mood changes that arise. Total time spent assessing patient, reviewing chart, and coordinating care: 32 minutes 09/16/2024 Other 1) No changes to psychotropic medication [...] assessing patient, reviewing chart, and coordinating care: 26 minutes 09/28/2024 Other 1) No changes to psychotropic medication [...] assessing patient, reviewing chart, and coordinating care: 28 minutes 10/28/2024 Other 1) No changes to psychotropic medication [...] reviewing chart, and coordinating care: 27 minutes 11/25/2024 Other 1) No changes to psychotropic medication [...] assessing patient, reviewing chart, and coordinating care: 28 minutes 01/06/2025 Other 1) No changes to psychotropic [...] coordinating care: 27 minutes Plan Of Treatment No Information Insurance Providers Payer Name Payer Address Payer Phone Subscriber Number Group Number Insured Name Patient Relationship to Insured Coverage Start Date Coverage End Date [facility] [address] [address] [place], [place] [id number] Sam Godfrey Self - patient is the insured [employer] [place] [address] [place] [address] [id number] Sam Godfrey Self - patient is the insured Medical (General) History Medical History History ICD Code HTN HLD GERD DMII intellectual delay TBI Surgical History Surgery Date(Month/Year) Available for review in patient's record at facility Hospitalization History Reason Date(Month/Year) Patient has many past psychiatric hospit alizations Last psychiatric admission w as in July 2023 at [facility]
[2025-01-26 15:23] LABS: Hematocrit 37.6 % (42.0-52.0); Hemoglobin 13.1 g/dL (14.1-18.0); Immature Granulocytes % 0.2 %; Mean Corpuscular HGB Conc 34.8 g/dL (31.8-35.4); Mean Corpuscular Hemoglobin 31.3 pg (27.0-31.2); Mean Corpuscular Volume 89.7 fl (80-94); Nucleated Red Blood Cells % 0 %; Platelet Count 154 K/mm3 (142-424); Red Blood Count 4.19 M/mm3 (4.60-6.20); Red Cell Distribution Width-SD 43.1 fL; White Blood Count 9.6 K/mm3 (4.8-10.8)
--- NOTE | 2025-01-26 15:23 | PC.NURSE ---
Attempted top contact [facility] x2 with no answer.
[2025-01-26 15:34] LABS: Alanine Aminotransferase 30 U/L (12-78); Albumin Level 4.5 g/dl (3.5-5.0); Albumin/Globulin Ratio 1.6 (1.1-1.8); Alkaline Phosphatase 95 U/L (38-126); Anion Gap 12.1 mEq/L (5-15); Aspartate Amino Transferase 29 U/L (17-59); Bilirubin,Total 0.2 mg/dl (0.2-1.3); Blood Urea Nitrogen 9 mg/dl (9-20); Calcium 9.1 mg/dl (8.4-10.2); Carbon Dioxide 27 mmol/L (22.0-30.0); Chloride 104 mmol/L (98-107); Creatinine Clearance Estimated 117 mL/min (50-200); Creatinine,Serum 0.90 mg/dl (0.66-1.25); Estimated Glomerular Filt Rate 89 ml/min (>60); GFR (African American) 107 ML/MIN (>60); Globulin 2.8 g/dL (1.3-3.2); Glucose 126 mg/dl (74-100); Potassium 4.1 mmoL/L (3.5-5.1); Sodium 139 mmol/L (136-145); Total Protein,Serum 7.3 g/dl (6.3-8.2)
--- NOTE | 2025-01-26 15:48 | PC.NURSE ---
I have sent the [facility]-710 and AO-711 to Judge Franco. Awaiting his response.
[2025-01-26 15:49] LABS: Troponin I < 0.01 ng/ml (0.00-0.034)
--- NOTE | 2025-01-26 15:52 | PC.NURSE ---
Spoke to dispatch at 1525 r/t Leather Stripping Machine Operator emails adress.
--- NOTE | 2025-01-26 16:04 | PC.NURSE ---
pt belonging were removed and placed in personal belongings bag and labeled with pt sticker. items include, shoes, can of [place] dip, hat, T-shirt, coat, jeans and belt.
[2025-01-26 16:15] LABS: Acetaminophen < 10 ug/ml (10-30); Salicylate < 1.0 mg/dL (2.0-20.0)
[2025-01-26 16:28] LABS: Hepatitis C Ab Qual. W/ RFX NEGATIVE (Negative)
--- NOTE | 2025-01-26 16:30 | PC.NURSE ---
Gerson called at this time stating she received a notification from Oxana Palomino regarding the previous email sent and roving sizer being notified. John Longo notified that we contacted dispatch in regards to obtain electrical power station technician roving sizer. I spoke with Cl at dispatch inquiring info for the correct roving sizer. At this time I was given the name Jani and a contact number. John Longo notified. I will call Palm And Back Forger Jani and request an email address.
--- NOTE | 2025-01-26 17:33 | PC.NURSE ---
PT has urinal in reach for need of UA. PT denies need to urine.
--- NOTE | 2025-01-26 17:47 | PC.NURSE ---
Plastics Technician contacted ED r/t PT. Updated Plastics Technician. Call back number is [phone]
--- NOTE | 2025-01-26 17:49 | PC.NURSE ---
Elvis Gupta contacted [facility] ED r/t not receiving fax. Refaxed PT records to [phone] as that is the number Elvis Gupta Gave
--- NOTE | 2025-01-26 17:56 | PC.NURSE ---
Spoke with ILEANA Early. Made aware of ED visit. Sharath stated he is a friend who was granted POA.
--- NOTE | 2025-01-26 17:58 | PC.NURSE ---
pt accompanied to the bathroom to attempt to provide a urine sample.
[2025-01-26 18:24] LABS: Barbiturates Screen,Urine Negative ng/ml (<200); Benzodiazepines Screen,Urine Negative ng/ml (<200)
[2025-01-26 18:25] LABS: Amphetamine/Metha Screen,Urine Negative ng/ml (<1000)
[2025-01-26 18:27] LABS: Methadone Screen,Urine Negative ng/ml (<300)
[2025-01-26 18:28] LABS: Opiate Screen,Urine Negative ng/ml (<300); Phencyclidine Screen,Urine Negative ng/ml (<25)
[2025-01-26 18:48] LABS: Troponin I < 0.01 ng/ml (0.00-0.034)
--- NOTE | 2025-01-26 19:16 | PC.NURSE ---
Mya Fabric Awning Repairer at [facility] - [phone] Sharath BANNER - [phone]
--- NOTE | 2025-01-26 20:01 | PC.NURSE ---
Zoom meeting with Mental Health from Elvis Gupta, Jani.
--- NOTE | 2025-01-26 20:17 | PC.NURSE ---
Report called to [facility]. Conrado in admission received reoprt
--- NOTE | 2025-01-26 20:23 | PC.NURSE ---
This RN called [facility] and spoke with Jani. Jani states a 712 & 713 needs to be completed by him and a squirrel worker. Afterwards, he will contact dispatch for transport. Unable to provide a timeframe.
--- NOTE | 2025-01-26 21:56 | PC.NURSE ---
Spoke with dispatch to see if jamee rowan has contacted the [facility] department. they have received paperwork but have not got a call yet
--- NOTE | 2025-01-26 22:26 | PC.NURSE ---
Spoke with dispatch to tell ask them to call the wood sawyer
--- NOTE | 2025-01-26 22:27 | PC.NURSE ---
Spoke with Raymundo Juarez regarding the 713 not being signed. Elvis Gupta has stated they're not doing anything else. Dispatch states they faxed the 713 however it has not been signed by the industrial roof plumber.
--- NOTE | 2025-01-26 22:28 | PC.NURSE ---
Spoke with dispatch, they said they cant do anything until the mount loader does. they also said that they just faxed the paperwork to him 20 minutes ago but jamee rowan said they faxed the paperwork to dispatch at 1999. we are now trying to get in contact with the personal protection specialist office, the call was fowarded to dispatch and they said they could not get us in contact with the personal protection specialist office because they are not in office and it will be sent right back to dispatch again.
--- NOTE | 2025-01-26 22:53 | PC.NURSE ---
Dispatch called and will be sending a deputy.
--- NOTE | 2025-01-26 23:14 | PC.NURSE ---
Spoke to [facility] DispatchEsmer. R/t court order for [facility] office or [employer] police sergeant must take PT to Psych facility. Dispatch stated they would contact a officer.
--- NOTE | 2025-01-26 23:20 | PC.NURSE ---
Dispatched called back and stated an appropriate designee would be here in about an hour
[2025-01-27] VITALS: BP 189/99
[2025-01-27 00:41] VITALS: BP 189/99; PULSE 78; RESP 16; TEMP 37.1; O2SAT 98
== END 2025-01-27 00:43 | disposition other institution (70) ==
PROVIDERS: Nurse Practitioner; Emergency Provider Student in an Organized Health Care Education/Training Program
DX: R07.9 Chest pain, unspecified (principal); R45.851 Suicidal ideations; F32.A Depression, unspecified
CPT/HCPCS: 71045; 80053; 80307; 80320; 80329; 84484; 85025; 86803; 87389; 93005; 99285